=== PATIENT | male | born 1955 | race Caucasian/White ===

== ENCOUNTER → 2017-07-28 07:47 | Outpatient (CLI) | payer OTHER, SELFPAY ==
[2017-07-28 08:23] LABS: Hematocrit 43.3 % (40-54); Hemoglobin 14.8 g/dl (13.0-16.5); Mean Corp Hgb Conc 34.2 g/gl (32-36); Mean Corpuscular Volume 84.7 fL (80-94); Mean Platelet Vol. 10.2 fl (6.2-12.0); Platelet Count 234 K/mm3 (150-450); Red Blood Count 5.11 M/mm3 (4.6-6.2); Scan Indicated on CBC? Y/N NO; White Blood Count 6.8 K/mm3 (4.4-11.0)
[2017-07-28 08:44] LABS: ALB/GLOB Ratio 1.1 RATIO (0.9-2.4); AST(SGOT) 13 U/L (15-37); Alanine Aminotransfer ALT/SGPT 27 U/L (16-61); Albumin, Serum 3.8 g/dL (3.2-5.0); Alkaline Phosphatase 62 U/L (45-117); Anion Gap 9 (5-15); BUN 12 mg/dL (7-18); BUN/Creat Ratio 12.3 RATIO (10-20); Calcium,Total 8.8 mg/dL (8.5-10.1); Chloride 104 mmol/L (98-107); Cholesterol 129 mg/dL (200); Creatinine, Serum 0.98 mg/dL (0.70-1.30); EST Glomerular Filtration Rate 83 mL/min (>60); Est Glom Filt Rate - Afr Amer 101 mL/min (>60); Globulin 3.6 g/dL (2.2-4.2); Glucose 237 mg/dL (74-106); High Density Lipoprotein 46 mg/dL; Potassium 4.2 mmol/L (3.5-5.1); Protein, Total 7.4 g/dL (6.4-8.2); Sodium Level 138 mmol/L (136-145); Triglycerides 71 mg/dL; Very Low Density Lipoprotein 14 mg/dL (5-40)
[2017-07-28 08:56] LABS: Microalbumin,Random Urine 9.5 mg/L (NO RANGE EST.); Microalbumin:Creatinine Ratio 40.3 mg/g CRE (<30 mg/g CRE)
== END ==
PROVIDERS: Family Provider Family Medicine; PCP Family Medicine; Visit Provider Family Medicine
DX: I10 Essential (primary) hypertension (principal); E78.5 Hyperlipidemia, unspecified; E11.9 Type 2 diabetes mellitus without complications
CPT/HCPCS: 36415; 80053; 80061; 82043; 82570; 83036; 85027

== ENCOUNTER → 2017-11-24 09:08 | Outpatient (CLI) | payer OTHER, SELFPAY ==
[2017-11-24 09:17] LABS: Bacteria 0 SEEN /hpf (None Seen); Mucous, Urine 0 SEEN /hpf (<or=2+); Red Blood Cells-Urine 0 SEEN /hpf (0-5); Squamous Epithelial Cells - UA 0 SEEN /hpf (0-5)
[2017-11-24 09:37] LABS: Hemoglobin 14.7 g/dl (13.0-16.5); Mean Corp Hgb Conc 33.4 g/gl (32-36); Mean Corpuscular Hgb 28.9 pg (27.0-32.0); Mean Corpuscular Volume 86.6 fL (80-94); Mean Platelet Vol. 9.9 fl (6.2-12.0); Platelet Count 195 K/mm3 (150-450); RBC Distribution Width CV 13.1 % (11.6-14.6); RBC Distribution Width SD 41.7 fl (35.1-43.9); Red Blood Count 5.08 M/mm3 (4.6-6.2); White Blood Count 8.2 K/mm3 (4.4-11.0)
[2017-11-24 09:39] LABS: Color, Urine Yellow (Yellow); Glucose, Dipstick Normal (Normal); Ketone-Dipstick Negative (Negative); Leukocyte Esterase-Dipstick 25 /ul (Negative); Nitrite-Dipstick Negative (Negative); Occult Blood-Urine Negative /ul (Negative); Protein-Dipstick Negative (Negative); Urine Bilirubin Dipstick Negative (Negative); Urine Clarity Clear (Clear); Urine Urobilinogen Normal (Normal); Urine pH 6.5 (5.0 - 8.0)
[2017-11-24 09:42] LABS: Scan Indicated on CBC? Y/N NO
[2017-11-24 09:49] LABS: White Blood Cells 0-5 SEEN /hpf (0-5)
[2017-11-24 10:00] LABS: Hemoglobin A1c 8.3 % (4.2-6.3)
[2017-11-24 10:02] LABS: ALB/GLOB Ratio 1.2 RATIO (0.9-2.4); AST(SGOT) 18 U/L (15-37); Alanine Aminotransfer ALT/SGPT 26 U/L (16-61); Albumin, Serum 3.9 g/dL (3.2-5.0); Alkaline Phosphatase 62 U/L (45-117); Anion Gap 5 (5-15); BUN 11 mg/dL (7-18); BUN/Creat Ratio 11.6 RATIO (10-20); Calcium,Total 8.7 mg/dL (8.5-10.1); Chloride 104 mmol/L (98-107); Cholesterol 120 mg/dL (200); Creatinine, Serum 0.95 mg/dL (0.70-1.30); EST Glomerular Filtration Rate 86 mL/min (>60); Est Glom Filt Rate - Afr Amer 104 mL/min (>60); Globulin 3.2 g/dL (2.2-4.2); Glucose 181 mg/dL (74-106); High Density Lipoprotein 40 mg/dL; PSA,Total - Annual Screen 1.94 ng/mL (0.00-4.00); Potassium 4.2 mmol/L (3.5-5.1); Protein, Total 7.1 g/dL (6.4-8.2); Sodium Level 137 mmol/L (136-145); Triglycerides 95 mg/dL; Very Low Density Lipoprotein 19 mg/dL (5-40)
== END ==
PROVIDERS: Family Provider Family Medicine; PCP Family Medicine; Visit Provider Family Medicine
DX: I10 Essential (primary) hypertension (principal); R80.9 Proteinuria, unspecified; E78.5 Hyperlipidemia, unspecified; E11.9 Type 2 diabetes mellitus without complications; Z12.5 Encounter for screening for malignant neoplasm of prostate
CPT/HCPCS: 36415; 80053; 80061; 81001; 83036; 84153; 85027; G0103

== ENCOUNTER → 2018-03-16 07:34 | Outpatient (CLI) | payer OTHER, SELFPAY ==
[2018-03-16 07:41] LABS: Bacteria 0 SEEN /hpf (None Seen); Mucous, Urine 0 SEEN /hpf (<or=2+); Red Blood Cells-Urine 0 SEEN /hpf (0-5); Squamous Epithelial Cells - UA 0 SEEN /hpf (0-5); White Blood Cells 0 SEEN /hpf (0-5)
[2018-03-16 09:04] LABS: Absolute Lymphocyte Count 1.77 X10^3/ul (0.83-4.51); Absolute Neutrophil Count 6.1 X10^3/uL (2.0-7.7); Basophil# 0.03 X10^3/uL; Basophil% 0.3 % (0-1); Eosinophil# 0.13 X10^3/uL; Eosinophils% 1.5 % (0-5); Hematocrit 45.9 % (40-54); Hemoglobin 15.3 g/dl (13.0-16.5); Lymphocyte # 1.77 X10^3/ul (4.0); Lymphocyte % 20.3 % (19-41); Mean Corp Hgb Conc 33.3 g/gl (32-36); Mean Corpuscular Hgb 29.2 pg (27.0-32.0); Mean Corpuscular Volume 87.6 fL (80-94); Mean Platelet Vol. 10.1 fl (6.2-12.0); Monocyte# 0.63 X10^3/uL; Monocyte% 7.2 % (0-10); Neutrophil # 6.14 X10^3/uL (2.7-7.7); Neutrophil % 70.5 % (47-70); POSITIVE COUNT NO; POSITIVE DIFFERENTIAL NO; POSITIVE MORPHOLOGY NO; Platelet Count 227 K/mm3 (150-450); RBC Distribution Width CV 13.3 % (11.6-14.6); RBC Distribution Width SD 42.5 fl (35.1-43.9); Red Blood Count 5.24 M/mm3 (4.6-6.2); White Blood Count 8.7 K/mm3 (4.4-11.0)
[2018-03-16 09:23] LABS: Hemoglobin A1c 9.3 % (4.2-6.3)
[2018-03-16 09:25] LABS: Color, Urine Yellow (Yellow); Glucose, Dipstick 1000 mg/dl (Normal); Ketone-Dipstick 5 mg/dl (Negative); Leukocyte Esterase-Dipstick Negative /ul (Negative); Nitrite-Dipstick Negative (Negative); Occult Blood-Urine Negative /ul (Negative); Protein-Dipstick Negative (Negative); Specific Gravity, Urine 1.015 (1.002-1.030); Urine Bilirubin Dipstick Negative (Negative); Urine Clarity Clear (Clear); Urine Urobilinogen Normal (Normal)
[2018-03-16 09:34] LABS: Microalbumin,Random Urine 27.5 mg/L (NO RANGE EST.); Microalbumin:Creatinine Ratio 35.3 mg/g CRE (<30 mg/g CRE)
[2018-03-16 09:37] LABS: ALB/GLOB Ratio 1.1 RATIO (0.9-2.4); AST(SGOT) 12 U/L (15-37); Alanine Aminotransfer ALT/SGPT 27 U/L (16-61); Alkaline Phosphatase 72 U/L (45-117); Anion Gap 6 (5-15); BUN 16 mg/dL (7-18); BUN/Creat Ratio 17.7 RATIO (10-20); Chloride 102 mmol/L (98-107); Creatinine, Serum 0.91 mg/dL (0.70-1.30); EST Glomerular Filtration Rate 90 mL/min (>60); Est Glom Filt Rate - Afr Amer 109 mL/min (>60); Globulin 3.8 g/dL (2.2-4.2); Glucose 251 mg/dL (74-106); Potassium 4.6 mmol/L (3.5-5.1); Protein, Total 7.8 g/dL (6.4-8.2); Sodium Level 136 mmol/L (136-145)
== END ==
PROVIDERS: Family Provider Family Medicine; PCP Family Medicine; Referring Provider Family Medicine; Visit Provider Family Medicine
DX: I10 Essential (primary) hypertension (principal); E11.9 Type 2 diabetes mellitus without complications
CPT/HCPCS: 36415; 80053; 81001; 82043; 82570; 83036; 85025

== ENCOUNTER → 2018-10-28 08:20 | Outpatient (CLI) | payer OTHER, SELFPAY ==
[2018-10-28 10:03] LABS: Absolute Lymphocyte Count 1.89 X10^3/ul (0.83-4.51); Absolute Neutrophil Count 5.7 X10^3/uL (2.0-7.7); Basophil# 0.02 X10^3/uL; Basophil% 0.2 % (0-1); Eosinophil# 0.18 X10^3/uL; Eosinophils% 2.2 % (0-5); Hematocrit 46.9 % (40-54); Hemoglobin 15.7 g/dl (13.0-16.5); Lymphocyte # 1.89 X10^3/ul (4.0); Lymphocyte % 22.6 % (19-41); Mean Corp Hgb Conc 33.5 g/gl (32-36); Mean Corpuscular Hgb 28.3 pg (27.0-32.0); Mean Corpuscular Volume 84.7 fL (80-94); Mean Platelet Vol. 10.6 fl (6.2-12.0); Monocyte# 0.54 X10^3/uL; Monocyte% 6.5 % (0-10); Neutrophil # 5.71 X10^3/uL (2.7-7.7); Neutrophil % 68.1 % (47-70); Platelet Count 252 K/mm3 (150-450); RBC Distribution Width CV 13.7 % (11.6-14.6); Red Blood Count 5.54 M/mm3 (4.6-6.2); White Blood Count 8.4 K/mm3 (4.4-11.0)
[2018-10-28 10:04] LABS: POSITIVE COUNT NO; POSITIVE DIFFERENTIAL NO; POSITIVE MORPHOLOGY NO
[2018-10-28 10:24] LABS: ALB/GLOB Ratio 1.1 RATIO (0.9-2.4); AST(SGOT) 16 U/L (15-37); Alanine Aminotransfer ALT/SGPT 27 U/L (16-61); Albumin, Serum 4.1 g/dL (3.2-5.0); Alkaline Phosphatase 76 U/L (45-117); Anion Gap 7 (5-15); BUN 12 mg/dL (7-18); BUN/Creat Ratio 11.9 RATIO (10-20); Calcium,Total 9.5 mg/dL (8.5-10.1); Chloride 104 mmol/L (98-107); Cholesterol 140 mg/dL (200); Creatinine, Serum 1.01 mg/dL (0.70-1.30); EST Glomerular Filtration Rate 80 mL/min (>60); Est Glom Filt Rate - Afr Amer 96 mL/min (>60); Globulin 3.6 g/dL (2.2-4.2); Glucose 201 mg/dL (74-106); High Density Lipoprotein 42 mg/dL; Potassium 4.4 mmol/L (3.5-5.1); Protein, Total 7.7 g/dL (6.4-8.2); Sodium Level 141 mmol/L (136-145); Triglycerides 149 mg/dL; Very Low Density Lipoprotein 30 mg/dL (5-40)
[2018-10-28 10:34] LABS: Microalbumin,Random Urine 18.6 mg/L (NO RANGE EST.); Microalbumin:Creatinine Ratio 22.4 mg/g CRE (<30 mg/g CRE)
== END ==
PROVIDERS: Family Provider Family Medicine; PCP Family Medicine; Visit Provider Family Medicine
DX: E11.9 Type 2 diabetes mellitus without complications (principal); I10 Essential (primary) hypertension; E78.5 Hyperlipidemia, unspecified
CPT/HCPCS: 36415; 80053; 80061; 82043; 82570; 83036; 85025

== ENCOUNTER → 2019-01-24 07:57 | Outpatient (CLI) | payer OTHER, SELFPAY ==
[2019-01-24 08:06] LABS: Bacteria 0 SEEN /hpf (None Seen); Mucous, Urine 0 SEEN /hpf (<or=2+)
[2019-01-24 10:16] LABS: Absolute Lymphocyte Count 1.64 X10^3/uL (0.83-4.51); Absolute Neutrophil Count 5.5 X10^3/uL (2.0-7.7); Basophil# 0.05 X10^3/uL; Basophil% 0.6 % (0-1); Eosinophil# 0.14 X10^3/uL; Eosinophils% 1.8 % (0-5); Hematocrit 43.8 % (40-54); Lymphocyte # 1.64 X10^3/ul (4.0); Lymphocyte % 20.8 % (19-41); Mean Corpuscular Hgb 28.2 pg (27.0-32.0); Mean Corpuscular Volume 88.1 fL (80-94); Mean Platelet Vol. 10.6 fl (6.2-12.0); Monocyte# 0.49 X10^3/uL; Monocyte% 6.2 % (0-10); NRBC Flagged by Analyzer 0 % (0-5); Neutrophil # 5.53 X10^3/uL (2.7-7.7); Neutrophil % 70.1 % (47-70); Platelet Count 220 K/mm3 (150-450); RBC Distribution Width CV 13.2 % (11.6-14.6); RBC Distribution Width SD 42.7 fl (35.1-43.9); Red Blood Count 4.97 M/mm3 (4.6-6.2); White Blood Count 7.9 K/mm3 (4.4-11.0)
[2019-01-24 10:37] LABS: Hemoglobin A1c 7.6 % (4.2-6.3)
[2019-01-24 10:50] LABS: ALB/GLOB Ratio 1.1 RATIO (0.9-2.4); AST(SGOT) 15 U/L (15-37); Alanine Aminotransfer ALT/SGPT 24 U/L (16-61); Albumin, Serum 3.9 g/dL (3.2-5.0); Alkaline Phosphatase 64 U/L (45-117); Anion Gap 6 (5-15); BUN 14 mg/dL (7-18); BUN/Creat Ratio 16.6 RATIO (10-20); Calcium,Total 9.1 mg/dL (8.5-10.1); Chloride 108 mmol/L (98-107); Creatinine, Serum 0.84 mg/dL (0.70-1.30); EST Glomerular Filtration Rate 98 mL/min (>60); Est Glom Filt Rate - Afr Amer 118 mL/min (>60); Globulin 3.5 g/dL (2.2-4.2); Glucose 126 mg/dL (74-106); Protein, Total 7.4 g/dL (6.4-8.2); Sodium Level 139 mmol/L (136-145)
[2019-01-24 11:08] LABS: Microalbumin,Random Urine 26.2 mg/L (NO RANGE EST.); Microalbumin:Creatinine Ratio 57.2 mg/g CRE (<30 mg/g CRE)
[2019-01-24 11:12] LABS: Color, Urine Yellow (Yellow); Glucose, Dipstick Normal (Normal); Ketone-Dipstick Negative (Negative); Leukocyte Esterase-Dipstick Negative /ul (Negative); Nitrite-Dipstick Negative (Negative); Occult Blood-Urine Negative /ul (Negative); Protein-Dipstick Negative (Negative); Urine Bilirubin Dipstick Negative (Negative); Urine Clarity Clear (Clear); Urine Urobilinogen Normal (Normal)
[2019-01-24 11:28] LABS: Squamous Epithelial Cells - UA 0-5 SEEN /hpf (0-5)
[2019-01-24 11:30] LABS: Red Blood Cells-Urine 0-5 SEEN /hpf (0-5); White Blood Cells 0-5 SEEN /hpf (0-5)
== END ==
PROVIDERS: Family Provider Family Medicine; PCP Family Medicine; Referring Provider Family Medicine; Visit Provider Family Medicine
DX: I10 Essential (primary) hypertension (principal); E11.9 Type 2 diabetes mellitus without complications
CPT/HCPCS: 36415; 80053; 81001; 82043; 82570; 83036; 85025

== ENCOUNTER → 2019-05-10 07:14 | Outpatient (CLI) | payer OTHER, SELFPAY ==
[2019-05-10 08:10] LABS: Absolute Lymphocyte Count 1.91 X10^3/uL (0.83-4.51); Absolute Neutrophil Count 7.6 X10^3/uL (2.0-7.7); Basophil# 0.05 X10^3/uL; Basophil% 0.5 % (0-1); Eosinophil# 0.16 X10^3/uL; Eosinophils% 1.5 % (0-5); Hematocrit 44.8 % (40-54); Hemoglobin 14.6 g/dL (13.0-16.5); Lymphocyte # 1.91 X10^3/ul (4.0); Lymphocyte % 18.5 % (19-41); Mean Corp Hgb Conc 32.6 g/dL (32-36); Mean Corpuscular Hgb 28.6 pg (27.0-32.0); Mean Corpuscular Volume 87.7 fL (80-94); Mean Platelet Vol. 9.7 fl (6.2-12.0); Monocyte% 5.8 % (0-10); NRBC Flagged by Analyzer 0 % (0-5); Neutrophil # 7.57 X10^3/uL (2.7-7.7); Neutrophil % 73.2 % (47-70); Platelet Count 272 K/mm3 (150-450); RBC Distribution Width SD 41.9 fl (35.1-43.9); Red Blood Count 5.11 M/mm3 (4.6-6.2); White Blood Count 10.3 K/mm3 (4.4-11.0)
[2019-05-10 08:31] LABS: ALB/GLOB Ratio 1.1 RATIO (0.9-2.4); AST(SGOT) 16 U/L (15-37); Alanine Aminotransfer ALT/SGPT 29 U/L (16-61); Albumin, Serum 3.8 g/dL (3.2-5.0); Alkaline Phosphatase 64 U/L (45-117); Anion Gap 3 (5-15); BUN 17 mg/dL (7-18); BUN/Creat Ratio 17.5 RATIO (10-20); Calcium,Total 9.2 mg/dL (8.5-10.1); Chloride 106 mmol/L (98-107); Cholesterol 118 mg/dL (200); Creatinine, Serum 0.97 mg/dL (0.70-1.30); EST Glomerular Filtration Rate 83 mL/min (>60); Est Glom Filt Rate - Afr Amer 100 mL/min (>60); Globulin 3.6 g/dL (2.2-4.2); Glucose 149 mg/dL (74-106); High Density Lipoprotein 43 mg/dL; Potassium 4.7 mmol/L (3.5-5.1); Protein, Total 7.4 g/dL (6.4-8.2); Sodium Level 139 mmol/L (136-145); Triglycerides 78 mg/dL; Very Low Density Lipoprotein 16 mg/dL (5-40)
[2019-05-10 08:42] LABS: Microalbumin,Random Urine 9.9 mg/L (NO RANGE EST.); Microalbumin:Creatinine Ratio 22.1 mg/g CRE (<30 mg/g CRE)
[2019-05-10 08:43] LABS: Bacteria 0 SEEN /hpf (None Seen); Mucous, Urine 0 SEEN /hpf (<or=2+); Red Blood Cells-Urine 0 SEEN /hpf (0-5); White Blood Cells 0 SEEN /hpf (0-5)
[2019-05-10 09:05] LABS: Color, Urine Yellow (Yellow); Glucose, Dipstick Normal (Normal); Ketone-Dipstick Negative (Negative); Leukocyte Esterase-Dipstick Negative /ul (Negative); Nitrite-Dipstick Negative (Negative); Occult Blood-Urine Negative /ul (Negative); Protein-Dipstick Negative (Negative); Urine Bilirubin Dipstick Negative (Negative); Urine Clarity Clear (Clear); Urine Urobilinogen Normal (Normal)
[2019-05-10 09:21] LABS: Squamous Epithelial Cells - UA 0-5 SEEN /hpf (0-5)
[2019-05-10 09:57] LABS: Hemoglobin A1c 8.1 % (4.2-6.3)
== END ==
PROVIDERS: Family Provider Family Medicine; PCP Family Medicine; Referring Provider Family Medicine; Visit Provider Family Medicine
DX: I10 Essential (primary) hypertension (principal); E78.5 Hyperlipidemia, unspecified; R80.9 Proteinuria, unspecified; Z72.0 Tobacco use; E11.9 Type 2 diabetes mellitus without complications
CPT/HCPCS: 36415; 80053; 80061; 81001; 82043; 82570; 83036; 85025

== ENCOUNTER → 2019-10-02 08:36 | Outpatient (CLI) | payer OTHER, SELFPAY ==
[2019-10-02 10:08] LABS: Hemoglobin A1c 7.5 % (3.8-5.6)
[2019-10-02 10:40] LABS: ALB/GLOB Ratio 1.2 RATIO (0.9-2.4); AST(SGOT) 20 U/L (15-37); Alanine Aminotransfer ALT/SGPT 31 U/L (16-61); Alkaline Phosphatase 65 U/L (45-117); Anion Gap 6 (5-15); BUN 16 mg/dL (7-18); BUN/Creat Ratio 18.2 RATIO (10-20); Chloride 104 mmol/L (98-107); Creatinine, Serum 0.88 mg/dL (0.70-1.30); EST Glomerular Filtration Rate 93 mL/min (>60); Est Glom Filt Rate - Afr Amer 113 mL/min (>60); Globulin 3.4 g/dL (2.2-4.2); Glucose 141 mg/dL (74-106); Potassium 3.9 mmol/L (3.5-5.1); Protein, Total 7.4 g/dL (6.4-8.2); Sodium Level 137 mmol/L (136-145)
== END ==
PROVIDERS: PCP Family Medicine; Referring Provider Family Medicine; Visit Provider Family Medicine
DX: I10 Essential (primary) hypertension (principal); E11.9 Type 2 diabetes mellitus without complications
CPT/HCPCS: 36415; 80053; 83036

== ENCOUNTER → 2020-02-06 07:54 | Outpatient (CLI) | payer OTHER, SELFPAY ==
[2020-02-06 07:59] LABS: Bacteria 0 SEEN /hpf (None Seen); Mucous, Urine 0 SEEN /hpf (<or=2+); Red Blood Cells-Urine 0 SEEN /hpf (0-5); Squamous Epithelial Cells - UA 0 SEEN /hpf (0-5); White Blood Cells 0 SEEN /hpf (0-5)
[2020-02-06 10:19] LABS: Absolute Lymphocyte Count 1.78 X10^3/uL (0.83-4.51); Absolute Neutrophil Count 6.3 X10^3/uL (2.0-7.7); Basophil# 0.07 X10^3/uL; Basophil% 0.8 % (0-1); Eosinophil# 0.21 X10^3/uL; Eosinophils% 2.3 % (0-5); Hematocrit 44.7 % (40-54); Hemoglobin 14.4 g/dL (13.0-16.5); Lymphocyte # 1.78 X10^3/ul (4.0); Lymphocyte % 19.8 % (19-41); Mean Corp Hgb Conc 32.2 g/dL (32-36); Mean Corpuscular Volume 89.9 fL (80-94); Mean Platelet Vol. 10.4 fl (6.2-12.0); Monocyte# 0.55 X10^3/uL; Monocyte% 6.1 % (0-10); NRBC Flagged by Analyzer 0 % (0-5); Neutrophil # 6.33 X10^3/uL (2.7-7.7); Neutrophil % 70.4 % (47-70); Platelet Count 254 K/mm3 (150-450); RBC Distribution Width CV 13.1 % (11.6-14.6); RBC Distribution Width SD 42.8 fl (35.1-43.9); Red Blood Count 4.97 M/mm3 (4.6-6.2)
[2020-02-06 10:21] LABS: Color, Urine Yellow (Yellow); Glucose, Dipstick Normal (Normal); Ketone-Dipstick Negative (Negative); Leukocyte Esterase-Dipstick Negative /ul (Negative); Nitrite-Dipstick Negative (Negative); Occult Blood-Urine Negative /ul (Negative); Protein-Dipstick Negative (Negative); Urine Bilirubin Dipstick Negative (Negative); Urine Clarity Clear (Clear); Urine Urobilinogen Normal (Normal)
[2020-02-06 10:29] LABS: ALB/GLOB Ratio 1.2 RATIO (0.9-2.4); AST(SGOT) 15 U/L (15-37); Alanine Aminotransfer ALT/SGPT 29 U/L (16-61); Albumin, Serum 4.1 g/dL (3.2-5.0); Alkaline Phosphatase 59 U/L (45-117); Anion Gap 6 (5-15); BUN 14 mg/dL (7-18); BUN/Creat Ratio 14.6 RATIO (10-20); Calcium,Total 9.1 mg/dL (8.5-10.1); Chloride 104 mmol/L (98-107); Cholesterol 130 mg/dL (200); Creatinine, Serum 0.96 mg/dL (0.70-1.30); EST Glomerular Filtration Rate 85 mL/min (>60); Est Glom Filt Rate - Afr Amer 102 mL/min (>60); Globulin 3.4 g/dL (2.2-4.2); Glucose 145 mg/dL (74-106); High Density Lipoprotein 52 mg/dL; Protein, Total 7.5 g/dL (6.4-8.2); Sodium Level 139 mmol/L (136-145); Triglycerides 110 mg/dL; Very Low Density Lipoprotein 22 mg/dL (5-40)
[2020-02-06 10:40] LABS: Hemoglobin A1c 6.8 % (3.8-5.6)
[2020-02-06 11:02] LABS: Microalbumin,Random Urine 7.7 mg/L (NO RANGE EST.); Microalbumin:Creatinine Ratio 31.6 mg/g CRE (<30 mg/g CRE)
== END ==
PROVIDERS: PCP Family Medicine; Referring Provider Family Medicine; Visit Provider Family Medicine
DX: E11.9 Type 2 diabetes mellitus without complications (principal); I10 Essential (primary) hypertension; E78.5 Hyperlipidemia, unspecified; R80.9 Proteinuria, unspecified
CPT/HCPCS: 36415; 80053; 80061; 81001; 82043; 82570; 83036; 85025

== ENCOUNTER 2020-07-13 16:32 | Outpatient (RCR) | payer OTHER, SELFPAY ==
[2020-07-13] MEDS: COVID-19 VACC, MRNA(PFIZER)/PF 30 MCG/0.3 ML SYRINGE IM (09:21)
[2020-08-03] MEDS: COVID-19 VACC, MRNA(PFIZER)/PF 30 MCG/0.3 ML SYRINGE IM (09:01)
== END 2020-10-12 23:59 ==
LOC: IMMUN 16:32
PROVIDERS: PCP Family Medicine; Referring Provider Family Medicine; Visit Provider Family Medicine
DX: Z23 Encounter for immunization (principal)
CPT/HCPCS: 0001A; 0002A; 91300

== ENCOUNTER → 2020-08-05 08:32 | Outpatient (CLI) | payer OTHER, SELFPAY ==
[2020-08-05 10:24] LABS: Absolute Lymphocyte Count 1.63 X10^3/uL (0.83-4.51); Absolute Neutrophil Count 4.4 X10^3/uL (2.0-7.7); Basophil# 0.06 X10^3/uL; Basophil% 0.9 % (0-1); Eosinophil# 0.17 X10^3/uL; Eosinophils% 2.5 % (0-5); Hematocrit 38.7 % (40-54); Hemoglobin 12.5 g/dL (13.0-16.5); Lymphocyte # 1.63 X10^3/ul (4.0); Lymphocyte % 23.9 % (19-41); Mean Corp Hgb Conc 32.3 g/dL (32-36); Mean Corpuscular Volume 89.8 fL (80-94); Mean Platelet Vol. 10.3 fl (6.2-12.0); Monocyte# 0.52 X10^3/uL; Monocyte% 7.6 % (0-10); NRBC Flagged by Analyzer 0 % (0-5); Neutrophil # 4.42 X10^3/uL (2.7-7.7); Neutrophil % 64.7 % (47-70); Platelet Count 235 K/mm3 (150-450); RBC Distribution Width CV 12.6 % (11.6-14.6); RBC Distribution Width SD 41.8 fl (35.1-43.9); Red Blood Count 4.31 M/mm3 (4.6-6.2); White Blood Count 6.8 K/mm3 (4.4-11.0)
[2020-08-05 10:52] LABS: Hemoglobin A1c 7.9 % (3.8-5.6)
[2020-08-05 10:58] LABS: ALB/GLOB Ratio 1.2 RATIO (0.9-2.4); AST(SGOT) 20 U/L (15-37); Alanine Aminotransfer ALT/SGPT 44 U/L (16-61); Albumin, Serum 3.9 g/dL (3.2-5.0); Alkaline Phosphatase 56 U/L (45-117); Anion Gap 9 (5-15); BUN 24 mg/dL (7-18); Calcium,Total 9.1 mg/dL (8.5-10.1); Chloride 106 mmol/L (98-107); Cholesterol 130 mg/dL (200); EST Glomerular Filtration Rate 65 mL/min (>60); Est Glom Filt Rate - Afr Amer 79 mL/min (>60); Globulin 3.2 g/dL (2.2-4.2); Glucose 187 mg/dL (74-106); High Density Lipoprotein 41 mg/dL; Potassium 4.3 mmol/L (3.5-5.1); Protein, Total 7.1 g/dL (6.4-8.2); Sodium Level 140 mmol/L (136-145); Thyroid Stim Hormone (TSH) 1.35 uIU/mL (0.358-3.74); Triglycerides 183 mg/dL; Very Low Density Lipoprotein 37 mg/dL (5-40)
[2020-08-05 13:12] LABS: Microalbumin,Random Urine 15.6 mg/L (NO RANGE EST.); Microalbumin:Creatinine Ratio 17.7 mg/g CRE (<30 mg/g CRE)
== END ==
PROVIDERS: PCP Family Medicine; Referring Provider Family Medicine; Visit Provider Family Medicine
DX: E11.59 Type 2 diabetes mellitus with other circulatory complications (principal); E11.69 Type 2 diabetes mellitus with other specified complication
CPT/HCPCS: 36415; 80053; 80061; 82043; 82570; 83036; 84443; 85025

== ENCOUNTER → 2020-08-10 14:47 | Outpatient (CLI) | payer OTHER, SELFPAY ==
[2020-08-10 18:29] LABS: Vitamin B12 345 pg/mL (211-911)
[2020-08-10 18:39] LABS: Ferritin 174 ng/mL (26-388); Iron 74 ug/dL (65-175); Iron Binding Capacity,Total 298 ug/dL (250-450)
== END ==
PROVIDERS: PCP Family Medicine; Visit Provider Family Medicine
DX: D64.9 Anemia, unspecified (principal)
CPT/HCPCS: 36415; 82607; 82728; 82746; 83540; 83550

== ENCOUNTER → 2020-11-29 11:51 | Outpatient (CLI) | payer OTHER, SELFPAY ==
[2020-11-24 12:54] VITALS: BMI 33.3
--- NOTE | 2020-11-29 11:53 | EKG12_ITS ---
Test Reason : SOB Blood Pressure : / mmHG Vent. Rate : 094 BPM Atrial Rate : 094 BPM P-R Int : 144 ms QRS Dur : 122 ms QT Int : 376 ms P-R-T Axes : 066 250 020 degrees QTc Int : 470 ms Normal sinus rhythm Right bundle branch block Inferior infarct , age undetermined Abnormal ECG Confirmed by NIKHIL MARIE, RIGOBERTO ([id number]), newspaper photo editor YESY WIGGINS ([id number]) on 11/30/2020 10:33:14 AM Referred By: Aditi Hampton Confirmed By:RIGOBERTO TEJEDA MD
== END ==
PROVIDERS: PCP Internal Medicine; Referring Provider Internal Medicine; Visit Provider Internal Medicine
DX: I10 Essential (primary) hypertension (principal)
CPT/HCPCS: 93005

== ENCOUNTER → 2020-12-21 06:24 | Outpatient (CLI) | payer OTHER, SELFPAY ==
[2020-12-06 15:01] VITALS: BMI 33.5
--- NOTE | 2020-12-21 06:26 | ECHOD_ITS ---
Reason For Study: SOB Procedure This was a 2D Doppler, Color Flow transthoracic echocardiogram. The exam was of adequate technical quality. Exam performed in department. Left Ventricle Normal LV size. Left ventricular systolic function is normal. The estimated ejection fraction is 65 %. Diastolic function is indeterminate. No regional wall motion abnormalities noted. Right Ventricle Normal RV size. Normal systolic function. Atria Normal left atrium. Normal right atrium. No doppler evidence for ASD. Mitral Valve There is mild to moderate mitral annular calcification. Mild focal mitral valve calcification of the posterior leaflet. Trivial mitral valve insufficiency. Tricuspid Valve Normal tricuspid valve. Trivial tricuspid valve insufficiency. Unable to estimate RV systolic pressure due to insufficient tricuspid regurgitant envelope. Aortic Valve Trisinus/trileaflet aortic valve. Normal aortic valve. Pulmonic Valve The pulmonic valve is not well visualized. Great Vessels Normal sized aortic root. Pericardium/Pleural No pericardial effusion. MMode/2D Measurements & Calculations LVIDd: 4.8 cm IVSd: 0.86 cm Ao root diam: 3.4 cm LVIDs: 3.0 cm LVPWd: 0.89 cm RVDd: 3.4 cm FS: 38.3 % LAV(MOD-bp): 41.3 ml LA A4 area: 15.5 cm2 LA dimension(2D): 4.0 cm LAV(MOD-bp) Indexed: 18.9 ml/m2 LAV(MOD-sp2): 38.8 ml LAV(MOD-sp4): 43.3 ml RA A4 area: 15.0 cm2 Doppler Measurements & Calculations MV E max juan alberto: 81.5 cm/sec Lat Peak E' Juan Alberto: 5.8 cm/sec Med Peak E' Juan Alberto: 6.8 cm/sec MV A max juan alberto: 94.4 cm/sec E/E' lat: 14.2 E/E' med: 12.0 MV E/A: 0.86 Ao V2 max: 145.6 cm/sec LV V1 max: 119.2 cm/sec PA V2 max: 108.6 cm/sec Ao max P.5 mmHg LV V1 max P.7 mmHg ECHO/Echo Complete Interpretation Summary Left ventricular systolic function is normal. The estimated ejection fraction is 65 %. There is mild to moderate mitral annular calcification. Mild focal mitral valve calcification of the posterior leaflet. Trivial mitral valve insufficiency. Trivial tricuspid valve insufficiency. Unable to estimate RV systolic pressure due to insufficient tricuspid regurgita nt envelope. Diastolic function is indeterminate. Ordering Physician: Ritesh Slater Referring Physician: Aditi Hampton M.D. Performed By: Pamela Godoy RDCS
--- NOTE | 2020-12-21 12:27 | STRESSREP_ITS ---
Stress Test Report Date: 12-21-2020 Procedure: Exercise tolerance test/imaging study Indications: Shortness of breath/dyspnea on exertion; abnormal ECG/right bundle branch block Consent: Per the patient Procedure: The patient exercised on a Jose D protocol for 5 minutes and 30 seconds completing Stage I and 1 minute and 30 seconds of Stage II achieving a peak heart rate of 151 bpm (96% predicted maximal heart rate) with a peak blood pressure 242/72 mmHg and a peak MET capacity of 7 METs. The baseline ECG demonstrated sinus rhythm; right bundle branch block. The peak exercise ECG demonstrated no obvious ECG changes. There was an isolated PAC during exercise. The functional capacity was considered average. There was no complaint of chest discomfort during exercise or recovery. The examination was discontinued secondary to dyspnea and hypertensive response. Impression: 1. Technically adequate (percent predicted maximal heart rate greater than 85%) exercise tolerance test 2. Peak exercise ECG with continued right bundle branch block with no obvious ECG changes 3. There was an isolated PAC during recovery 4. Blood pressure response: Resting hypertension-exaggerated response 5. Nuclear images pending Myocardial perfusion imaging study: Technique: The patient was injected with 14.5 mCi of technetium 99m Cardiolite and subsequently rest SPECT Cardiolite nuclear imaging was obtained in the horizontal long, vertical long, and short axis views. The patient exercised on a Jose D protocol for 5 minutes and 30 seconds completing Stage I and 1 minute and 30 seconds of Stage II achieving a peak heart rate of 151 bpm (96% predicted maximal heart rate) with a peak blood pressure 242/72 mmHg and a peak MET capacity of 7 METs. The patient was injected with 44.3 mCi of technetium 99m Cardiolite and subsequently stress SPECT Cardiolite nuclear imaging was obtained in the horizontal long, vertical long, and short axis views. A gated Cardiolite study at peak stress was obtained. Interpretation: Rest and stress SPECT Cardiolite nuclear imaging status post realignment, normalization, and attenuation correction, demonstrates the appearance of a small area of subtle diminished tracer uptake near the apical segments without significant change between rest and stress. There is end systolic thickening and brightening. The gated Cardiolite study demonstrates myocardial thickening and inward wall motion. The reported LVEF is 67%. Impression: 1. Rest and stress SPECT Cardiolite nuclear imaging demonstrate the appearance of a small area of subtle diminished tracer uptake near the apical segments without significant change between rest and stress appearing compatible with the effects of physiologic apical thinning. 2. The gated Cardiolite study reports an LVEF of 67%. This note was generated with [employer] software. It may contain incorrect words, spelling, and punctuation that were not noted in checking the note before signing.
== END ==
PROVIDERS: PCP Internal Medicine; Referring Provider Internal Medicine Cardiovascular Disease; Visit Provider Internal Medicine Cardiovascular Disease
DX: R94.31 Abnormal electrocardiogram [ECG] [EKG] (principal); E78.5 Hyperlipidemia, unspecified; I10 Essential (primary) hypertension
CPT/HCPCS: 78452; 93017; 93306; A9500; A4216

== ENCOUNTER → 2021-11-08 | Outpatient (CLI) | payer MEDICAID, SELFPAY ==
[2021-11-08 12:26] LABS: Absolute Lymphocyte Count 1.57 X10^3/uL (0.83-4.51); Basophil# 0.05 X10^3/uL; Basophil% 0.8 % (0-1); Eosinophil# 0.16 X10^3/uL; Eosinophils% 2.6 % (0-5); Hematocrit 39.4 % (40-54); Hemoglobin 12.9 g/dL (13.0-16.5); Lymphocyte # 1.57 X10^3/ul (0.83-4.51); Lymphocyte % 25.3 % (19-41); Mean Corp Hgb Conc 32.7 g/dL (32-36); Mean Corpuscular Hgb 28.4 pg (27.0-32.0); Mean Corpuscular Volume 86.6 fL (80-94); Mean Platelet Vol. 10.9 fl (6.2-12.0); Monocyte# 0.39 X10^3/uL; Monocyte% 6.3 % (0-10); NRBC Flagged by Analyzer 0 % (0-5); Neutrophil # 4.01 X10^3/uL (2.7-7.7); Neutrophil % 64.7 % (47-70); Platelet Count 240 K/mm3 (150-450); RBC Distribution Width CV 13.6 % (11.6-14.6); RBC Distribution Width SD 42.4 fl (35.1-43.9); Red Blood Count 4.55 M/mm3 (4.6-6.2); White Blood Count 6.2 K/mm3 (4.4-11.0)
[2021-11-08 12:51] LABS: Vitamin D,25 Hydroxy 28.2 ng/mL
[2021-11-08 12:58] LABS: ALB/GLOB Ratio 1.1 RATIO (0.9-2.4); AST(SGOT) 23 U/L (15-37); Alanine Aminotransfer ALT/SGPT 38 U/L (16-61); Albumin, Serum 3.8 g/dL (3.2-5.0); Alkaline Phosphatase 59 U/L (45-117); Anion Gap 8 (5-15); BUN 20 mg/dL (7-18); BUN/Creat Ratio 14.8 RATIO (10-20); Calcium,Total 9.3 mg/dL (8.5-10.1); Chloride 104 mmol/L (98-107); Cholesterol 144 mg/dL (200); Creatinine, Serum 1.35 mg/dL (0.70-1.30); EST Glomerular Filtration Rate 56 mL/min (>60); Est Glom Filt Rate - Afr Amer 68 mL/min (>60); Globulin 3.6 g/dL (2.2-4.2); Glucose 285 mg/dL (74-106); High Density Lipoprotein 34 mg/dL; Potassium 4.6 mmol/L (3.5-5.1); Protein, Total 7.4 g/dL (6.4-8.2); Sodium Level 137 mmol/L (136-145); Thyroid Stim Hormone (TSH) 0.93 uIU/mL (0.358-3.74); Triglycerides 240 mg/dL; Very Low Density Lipoprotein 48 mg/dL (5-40)
[2021-11-08 13:14] LABS: Hemoglobin A1c 10.7 % (3.8-5.6)
== END | disposition home or self-care (01) ==
LOC: BIMLAB 10:03
PROVIDERS: PCP Internal Medicine; Visit Provider Internal Medicine
DX: I10 Essential (primary) hypertension (principal); E11.9 Type 2 diabetes mellitus without complications; E78.5 Hyperlipidemia, unspecified; E66.9 Obesity, unspecified
CPT/HCPCS: 36415; 80053; 80061; 82306; 83036; 84443; 85025

== ENCOUNTER → 2022-05-27 | Outpatient (CLI) | payer MEDICARE, BC, SELFPAY | END | disposition home or self-care (01) | PROVIDERS: PCP Internal Medicine; Referring Provider Otolaryngology; Visit Provider Otolaryngology | DX: H92.10 Otorrhea, unspecified ear (principal) | CPT/HCPCS: 87070; 87075; 87077; 87107; 87186; 87205 ==

== ENCOUNTER → 2022-06-30 | Outpatient (CLI) | payer MEDICARE, BC, SELFPAY ==
[2022-06-30 12:43] LABS: Absolute Lymphocyte Count 1.74 X10^3/uL (0.83-4.51); Absolute Neutrophil Count 4.9 X10^3/uL (2.0-7.7); Basophil# 0.08 X10^3/uL; Basophil% 1.1 % (0-1); Eosinophil# 0.15 X10^3/uL; Hematocrit 41.4 % (40-54); Hemoglobin 13.1 g/dL (13.0-16.5); Lymphocyte # 1.74 X10^3/ul (0.83-4.51); Lymphocyte % 23.1 % (19-41); Mean Corp Hgb Conc 31.6 g/dL (32-36); Mean Corpuscular Hgb 27.9 pg (27.0-32.0); Mean Corpuscular Volume 88.1 fL (80-94); Mean Platelet Vol. 10.4 fl (6.2-12.0); Monocyte# 0.62 X10^3/uL; Monocyte% 8.2 % (0-10); NRBC Flagged by Analyzer 0 % (0-5); Neutrophil # 4.89 X10^3/uL (2.7-7.7); Neutrophil % 65.1 % (47-70); Platelet Count 237 K/mm3 (150-450); RBC Distribution Width CV 13.5 % (11.6-14.6); RBC Distribution Width SD 43.8 fl (35.1-43.9); White Blood Count 7.5 K/mm3 (4.4-11.0)
[2022-06-30 12:56] LABS: Anion Gap 7 (5-15); BUN 23 mg/dL (7-18); BUN/Creat Ratio 18.3 RATIO (10-20); Calcium,Total 9.6 mg/dL (8.5-10.1); Chloride 106 mmol/L (98-107); Creatinine, Serum 1.26 mg/dL (0.70-1.30); EST Glomerular Filtration Rate 61 mL/min (>60); Est Glom Filt Rate - Afr Amer 74 mL/min (>60); Glucose 174 mg/dL (74-106); Potassium 4.8 mmol/L (3.5-5.1); Sodium Level 140 mmol/L (136-145)
== END | disposition home or self-care (01) ==
LOC: BIMLAB 09:38
PROVIDERS: PCP Internal Medicine; Referring Provider Internal Medicine; Visit Provider Internal Medicine
DX: E11.9 Type 2 diabetes mellitus without complications (principal); I10 Essential (primary) hypertension
CPT/HCPCS: 36415; 80048; 85025

== ENCOUNTER → 2022-07-03 | Outpatient (CLI) | payer MEDICARE, BC, SELFPAY ==
[2022-07-03 15:58] LABS: Microalbumin,Random Urine 26.4 mg/L (NO RANGE EST.); Microalbumin:Creatinine Ratio 24.2 mg/g CRE (<30 mg/g CRE)
== END | disposition home or self-care (01) ==
LOC: LABSPEC 12:24
PROVIDERS: PCP Internal Medicine; Visit Provider Internal Medicine
DX: E11.9 Type 2 diabetes mellitus without complications (principal)
CPT/HCPCS: 82043; 82570

== ENCOUNTER → 2023-01-01 | Outpatient (CLI) | payer MEDICARE, BC, SELFPAY ==
[2023-01-01 12:52] LABS: ALB/GLOB Ratio 1.1 RATIO (0.9-2.4); AST(SGOT) 31 U/L (15-37); Alanine Aminotransfer ALT/SGPT 37 U/L (16-61); Albumin, Serum 3.8 g/dL (3.2-5.0); Alkaline Phosphatase 62 U/L (45-117); Anion Gap 6 (5-15); BUN 20 mg/dL (7-18); BUN/Creat Ratio 15.5 RATIO (10-20); Calcium,Total 9.3 mg/dL (8.5-10.1); Chloride 104 mmol/L (98-107); Cholesterol 102 mg/dL (200); Creatinine, Serum 1.29 mg/dL (0.70-1.30); EST Glomerular Filtration Rate 59 mL/min (>60); Est Glom Filt Rate - Afr Amer 72 mL/min (>60); Globulin 3.6 g/dL (2.2-4.2); Glucose 100 mg/dL (74-106); High Density Lipoprotein 37 mg/dL; Protein, Total 7.4 g/dL (6.4-8.2); Sodium Level 136 mmol/L (136-145); Triglycerides 163 mg/dL; Very Low Density Lipoprotein 33 mg/dL (5-40)
[2023-01-01 12:53] LABS: Vitamin D,25 Hydroxy 28.5 ng/mL
== END | disposition home or self-care (01) ==
LOC: BIMLAB 08:27
PROVIDERS: PCP Internal Medicine; Referring Provider Internal Medicine; Visit Provider Internal Medicine
DX: E11.9 Type 2 diabetes mellitus without complications (principal); I10 Essential (primary) hypertension; E55.9 Vitamin D deficiency, unspecified
CPT/HCPCS: 36415; 80053; 80061; 82043; 82306; 82570; 83036

== ENCOUNTER → 2023-04-02 | Outpatient (CLI) | payer MEDICARE, BC, SELFPAY | END | disposition home or self-care (01) | LOC: LAB.FUTURE 08:41 → LABSPEC 08:42 | PROVIDERS: PCP Internal Medicine; Visit Provider Otolaryngology | DX: H92.12 Otorrhea, left ear (principal) ==

== ENCOUNTER → 2023-07-02 | Outpatient (CLI) | payer MEDICARE, BC, SELFPAY ==
--- OUTSIDE RECORDS SUMMARY | 2023-07-02 11:55 | XMS RPT_ITS | CCD ---
Author Name Unknown Address [facility] [address] [place] [id number] Organization [facility] Care Team Providers Care Controller Instructor Name Role Phone Crystal MARIE, Efewongbe Florina Primary Care [facility] ider OLEGHE, EFEWONGBE FLORINA Primary Care Unav ailable HARMON, RODOLFO MEREDITH Referring Unavailable HARMON, RODOLFO MEREDITH Attending Unavailable OLEGHE, EFEWONGBE FLORINA Primary Care Unav ailable SALO YOUNG Attending Unavailabl e HARMON, RODOLFO MEREDITH Admitting Unavailable HARMON, RODOLFO MEREDITH Referring Unavailable HARMON, RODOLFO MEREDITH Attending Unavailable HARMONRODOLFO Quezada Admitting Unavailable OLEGHE, EFEWONGBE FLORINA Primary Care Unav ailable OLEGHE, EFEWONGBE FLORINA Primary Care Unav ailable HARMON, RODOLFO MEREDITH Attending Unavailable OLEGHE, EFEWONGBE FLORINA Primary Care Unav ailable EMERSON COOLEY Attending Unavailable HARMON, RODOLFO MEREDITH Attending Unavailable OLEGHE, EFEWONGBE FLORINA Primary Care Unav ailable OLEGHE, EFEWONGBE FLORINA Primary Care Unav ailable HARMON, RODOLFO MEREDITH Attending Unavailable OLEGHE, EFEWONGBE FLORINA Primary Care Unav ailable HARMON, RODOLFO MEREDITH Attending Unavailable OLEGHE, EFEWONGBE FLORINA Primary Care Unav ailable HARMON, RODOLFO MEREDITH Attending Unavailable HARMONRODOLFO Attending Unavailable OLEGHE, EFEWONGBE FLORINA Primary Care Unav ailable HARMON, RODOLFO MEREDITH Attending Unavailable OLEGHE, EFEWONGBE FLORINA Primary Care Unav ailable OLEGHE, EFEWONGBE FLORINA Primary Care Unav ailable RODOLFO HARMON Attending Unavailable Medications Current Medications Medication Drug Class(es) Dates Sig (Normalized) Sig (Original) aspirin 81 mg chewable tablet (10 sources) Platelet Aggregation Inhibitor, Nonsteroidal Anti-inflammatory Drug Start: 01-04-2005 aspirin 81 mg chewable tablet Chew and Swallow 1 (one) tablet (81 mg total) every morning . 0 01/04/2005 Active atorvastatin 40 mg oral tablet (10 sources) HMG-CoA Reductase Inhibitor Start: 11-02-2022 take 1 tablet by mouth once daily in the evening atorvastatin (LIPITOR) 40 MG tablet Take 1 (one) tablet (40 mg total) by mouth daily in the evening . 0 11/02/2022 Active cefdinir 300 mg oral capsule (1 source) Cephalosporin Antibacterial Start: 05-23-2023 End: 05-30-2023 take 1 capsule by mouth twice daily cefdinir (OMNICEF) 300 MG capsule Take 1 (one) capsule (300 mg total) by mouth 2 (two) times a day for 7 days . 14 capsule 0 05/23/2023 05/30/2023 Active ciprofloxacin 3 mg/ml / dexamethasone 1 mg/ml otic suspension (15 sources) Corticosteroid, Quinolone Antimicrobial Start: 03-26-2023 ciprofloxacin-dexA METHasone (CIPRODEX) otic suspension Indications: Otorrhea of left ear Administer 4 (four) drops into both ears 2 (two) times a day . 7.5 mL 0 03/26/2023 Active Problems Active Problems Problem Classification Problem Date Documented Date Episodic/Chronic Diabetes mellitus without complication (5 sources) Diabetes mellitus; Translations: [Type 2 diabetes mellitus without complications] Onset: 05-16-2023 05-16-2023 Chronic Disorders of lipid metabolism (7 sources) Hyperlipidemia; Translations: [Hyperlipidemia, unspecified] Onset: 05-16-2023 05-16-2023 Chronic Essential hypertension (7 sources) Hypertensive disorder; Translations: [Essential (primary) hypertension] Onset: 05-16-2023 05-16-2023 Chronic Other ear and sense organ disorders (3 sources) Mixed conductive and sensorineural hearing loss, bilateral; Translations: [Mixed conductive and sensorineural hearing loss, bilateral] 06-25-2023 Chronic Other ear and sense organ disorders (1 source) Otorrhea of left ear; Translations: [Otorrhea, left ear] 03-26-2023 Episodic Other ear and sense organ disorders (11 sources) Cerebrospinal fluid otorrhea; Translations: [CSF otorrhea] Onset: 05-15-2023 04-18-2023 Episodic Other ear and sense organ disorders (2 sources) Otorrhea, left ear; Translations: [Otorrhea, left ear] Onset: 03-26-2023 Episodic Other upper respiratory disease (2 sources) Allergic rhinitis, unspecified; Translations: [Allergic rhinitis, unspecified] Onset: 12-26-2022 Chronic Otitis media and related conditions (10 sources) Chronic left mastoiditis; Translations: [Chronic mastoiditis, left ear] Onset: 11-28-2022 12-12-2022 Chronic Otitis media and related conditions (5 sources) Perforation of tympanic membrane; Translations: [Unspecified perforation of tympanic membrane, right ear] Onset: 12-26-2022 06-11-2023 Episodic Unclassified (3 sources) Cranial cerebrospinal fluid leak, spontaneous; Translations: [Cranial cerebrospinal fluid leak, spontaneous] Onset: 04-19-2023 Past or Other Problems Problem Classification Problem Date Documented Date Episodic/Chronic Unclassified (3 sources) Cranial cerebrospinal fluid leak, spontaneous; Translations: [Cranial cerebrospinal fluid leak, spontaneous] Onset: 04-19-2023 Results Test Name Value Interpretation Reference Range Facil ity Vital Signs Date Time Vital Sign Value Performing Clinician Faci lity 06-11-2023 08:57-0500 Body mass index (BMI) [Ratio] 31.43 kg/m2 Rodolfo Harmon MD Work Phone: [facility] 06-11-2023 08:57-0500 Body temperature 98.01 [degF] Rodolfo Harmon MD Work Phone: [facility] 06-11-2023 08:57-0500 Body weight 97.93 kg Rodolfo Harmon MD Work Phone: [facility] 05-28-2023 11:16-0500 Body height 176.5 cm Rodolfo Harmon MD Work Phone: [facility] 05-28-2023 11:16-0500 Body mass index (BMI) [Ratio] 40.35 kg/m2 Rodolfo Harmon MD Work Phone: [facility] 05-28-2023 11:16-0500 Body temperature 97.5 [degF] Rodolfo Harmon MD Work Phone: [facility] 05-28-2023 11:16-0500 Body weight 125.74 kg Rodolfo Harmon MD Work Phone: [facility] 05-15-2023 09:11-0500 Body height 176.5 cm Rodolfo Harmon MD Work Phone: [facility] 05-15-2023 09:11-0500 Body mass index (BMI) [Ratio] 31.78 kg/m2 Rodolfo Harmon MD Work Phone: [facility] 05-15-2023 09:11-0500 Body temperature 97.59 [degF] Rodolfo Harmon MD Work Phone: [facility] 05-15-2023 09:11-0500 Body weight 99.02 kg Rodolof Harmon MD Work Phone: [facility] 12-12-2022 14:41-0400 Body height 176.5 cm Rodolfo Harmon MD Work Phone: [facility] 12-12-2022 14:41-0400 Body mass index (BMI) [Ratio] 33.29 kg/m2 Rodolfo Harmon MD Work Phone: [facility] 12-12-2022 14:41-0400 Body temperature 99 [degF] Rodolfo Harmon MD Work Phone: [facility] 12-12-2022 14:41-0400 Body weight 103.74 kg Rodolfo Harmon MD Work Phone: [facility] Encounters Encounter Date Encounter Type Care Provider Facility Start: 06-22-2023 End: 06-22-2023 ambulatory EFEWONGBE FLORINA [facility]o Start: 06-22-2023 End: 06-22-2023 Clinical Support Emerson Randle Work Phone: [facility] Plan of Treatment Date Care Activity Detail Author Start: 04-23-2028 Tetanus vaccination Tetanus: Every 1 0yrs [facility] Start: 09-17-2023 End: 09-17-2023 Patient encounter procedure 09/17/2023 10:00 AM EDT Office Visit [facility] [address] [place] [address] Rodolfo Harmon MD [address] [place] [address] [facility] Start: 09-11-2023 End: 09-11-2023 Patient encounter procedure 09/11/2023 3:30 PM EDT Office Visit [facility] [address] [place] [address] Rodolfo Harmon MD [address] [place] [address] [facility] Start: 07-04-2023 End: 07-04-2023 Clinical Support 07/04/2023 1:00 PM EST Clinical Support [facility] [address] [place] [address] Emerson Cooley AuD [address] [facility] [address] [place] [address] [facility] Start: 06-26-2023 End: 06-26-2023 Patient encounter procedure 06/26/2023 10:45 AM EST Office Visit [facility] [address] [place] [address] [facility] [address] [facility] [address] [place] [address] [facility] Start: 06-11-2023 End: 06-11-2023 Patient encounter procedure 06/11/2023 9:00 AM EST Office Visit [facility] [address] [place] [address] Rodolfo Harmon MD [address] [place] [address] [facility] [place] Start: 05-23-2023 Subsequent hospital visit by physician 05/23/2023 Hospital Encounter [facility] [address] [place] [id number] Rodolfo Harmon MD [address] [facility] [address] [place] [address] [facility] Start: 04-19-2023 End: 04-18-2024 Creatinine 24H renal clearance panel Creatinine Clearance Lab Routine CSF otorrhea Expected: 04/19/2023, Expires: 04/18/2024 [facility] Payers Date Payer Category Payer Medicare MEDICARE MEDICAR E PART A & B [id number] 2022-Present [phone] S [id number] PART A CLAIMS [address] [address] [place] [address] [id number] 2022 Medicare [id number] 2022 Unknown [id number] 2022 Unknown [id number] 1955 Unknown [id number] 1955 Unknown [id number] 1957 Unknown [id number] 1957 Unknown [id number] 1957 Unknown [id number] 1957 Unknown [id number] 1957 Unknown [id number] 1957 Unknown [id number] 1957 Unknown [id number] [id number] 1957 Unknown [id number] 1957 Unknown [id number] 1955 Unknown [id number] [id number] Unknown [id number] Social History Date Type Detail Facility Start: 11-28-2022 Tobacco smoking status MNIS Never sm oked tobacco [facility] Start: 11-28-2022 End: 05-16-2023 Tobacco use and exposure Smokeless tobacco non-user [facility] Start: 12-12-2022 End: 05-15-2023 Alcohol intake Ex-drinker (finding) [facility] Start: 11-28-2022 End: 06-11-2023 History of Social function [facility] Start: 11-28-2022 End: 06-11-2023 Tobacco use panel [facility] Start: 1955 Sex Assigned At Not on file [facility] Start: 05-16-2023 Tobacco smoking status MNIS Ex-smoke r [facility] End: 05-07-2018 History of tobacco use Current smoker [facility] End: 05-07-2018 History of tobacco use Cigarette Smoker [facility] Start: 05-28-2023 End: 06-11-2023 Alcohol intake Current drinker of alcohol (finding) [facility] Start: 05-16-2023 Alcohol Comment occasional [facility] Medical Equipment Procedure Code Equipment Code Equipment Origin al Text Equipment Identifier Dates See Admin Instru ctions . [id number] Start: 10-05-2022 USE CHECK BLOOD GLUCOSE THREE TIMES DAILY [id number] Start: 10-05-2022 USE TO CHECK BLO OD GLUCOSE THREE TIMES DAILY [id number] Start: 10-05-2022 Kit 10ml Tisseel Frozen W/ Prima Syringe - [id number] Start: 05-23-2023 Hemostat 8 X 12. 5cm X 10mm Surgifoam Gelatin Sponge - [id number] Start: 05-23-2023 Clinical Notes 12-12-2022 to 06-22-2023 Emerson Cooley, AuD - 06/22/2023 1:45 PM Emerson Harding, AuD - 06/22/2023 1:45 PM Rodolfo Ziegler MD - 06/11/2023 9:23 AM Perla Roberts CMA - 06/11/2023 8:52 AM EST Note Date & Type Note Facility 06-22-2023 History of Presen t illness Narrative Formatting of this note is different fro m the original. Images from the original note were not included. [facility] [address] [address] Name: Kit Murray : 1955 Date: 06/22/23 History & Purpose of Evaluation: Kit Knutson was seen today for audiologic assessment with no physician referral. Mr Knutson was accompanied by his , Betty Knutson. Mr. Knutson's chief auditory complaint was bilateral hearing loss. The onset and progression were gradual, beginning at least nine years ago. He denied any sudden or rapid change of hearing. Mr. Knutson reported he is currently being treated by Rodolfo Harmon MD for a leak of cerebrospinal fluid into his left ear. He currently uses two zhcylhyebf-gf-wze-canal hearing aids, but they are no longer meeting his needs. He is interested in replacing only the right instrument at this time. He may pursue replacing the left device after the cerebrospinal fluid leak into his left ear is resolved. Please see below for other pertinent case history information as reported by Mr Knutson. Otologic Symptoms R L Noise Exposure Y N Medical Y N Hearing Loss [x] [x] Occupational-past, no hearing protection [x] [] Hypertension [x] [] Tinnitus [] [] Recreational [] [x] Diabetes [x] [] Otalgia [] [] [] [x] Hypercholesterolemia [x] [] Otorrhea-CSF, had surgery [] [x] Heart Disease [] [x] Aural Fullness [] [] Family History [] [x] Stroke [] [x] Meniere s Disease [] [] Cancer [] [x] Y N Sp./Lang. Skills Ear Surgery R L Vertigo [] [x] Appropriate [x] [] PE Tubes-extruded [] [x] Dizziness [] [x] In Therapy [] [x] Mastoidectomy [] [] Imbalance [] [x] Social Acoustic Neuroma [] [] Vestibular Rehab [] [x] Depression [] [x] Tympanoplasty [] [] Hearing aids: binaural CICs, not working properly, wants to replace right only Other: Results: Otoscopy: Clear canals, bilaterally. Puretone Air & Bone Conduction Audiometry: Right ear: moderate-severe hearing loss, primarily sensorineural, with a conductive component at 500 Hz and 4000 Hz. Left ear: moderate-severe hearing loss, primarily sensorineural, with a conductive component at 500 Hz, 3000 Hz, and 4000 Hz. Speech Audiometry: Speech recognition thresholds were in good agreement with puretone averages. Word recognition was good (88%) in the right ear and poor (66%) in the left ear when assessed at levels above normal conversational loudness level using recorded male voice. Immittance Audiometry: Tympanometry revealed normal ear canal volume with low static compliance (Jerger type As) in the left ear. Tympanometry in the right ear revealed high ear canal volume in the right ear. Impression: Middle ear testing was consistent with negative pressure in the left ear, and with a perforated tympanic membrane in the right ear, as previously noted by Dr. Harmon on 06-11-2023. Puretone audiometry was consistent with a moderate-severe mixed hearing loss, bilaterally. This hearing loss is expected to interfere with communication, especially in difficult listening situations. Mr. Knutson is a candidate for amplification with hearing aids and he was invited to schedule an appointment for a hearing aid consultation. I also recommended he contact his insurance carrier to verify whether or not he has benefits for hearing aids and, if so, if he is required to receive services through any particular contracted provider to receive the benefits. I also mentioned [facility]'s Hospital Care Assurance Program (HCAP) as an option if he qualifies. Recommendations: Follow up with Dr. Harmon. Further testing and/or re-evaluation at Dr. Harmon' discretion. Hearing aids are recommended. Re-evaluate in one year, or sooner if concerns arise, to monitor hearing. Use of hearing protection is recommended when in high levels of noise. The above was explained to Mr Knutson and he expressed understanding. Electronically Signed by: Jer Ruiz, [facility] 06/22/23 1:45 PM Audiogram: documented in this encounter [facility] 06-22-2023 History of Presen t illness Narrative Formatting of this note is different fro m the original. Images from the original note were not included. [facility] [address] [place] [address] Name: Kit Murray : 1955 Date: 06/22/23 History & Purpose of Evaluation: Kit Murray was seen today for audiologic assessment with no physician referral. Mr Murray was accompanied by his , Betty Murray. Mr. Murray's chief auditory complaint was bilateral hearing loss. The onset and progression were gradual, beginning at least nine years ago. He denied any sudden or rapid change of hearing. Mr. Murray reported he is currently being treated by Rodolfo Harmon MD for a leak of cerebrospinal fluid into his left ear. He currently uses two jkqorycrkz-vq-kro-canal hearing aids, but they are no longer meeting his needs. He is interested in replacing only the right instrument at this time. He may pursue replacing the left device after the cerebrospinal fluid leak into his left ear is resolved. Please see below for other pertinent case history information as reported by Mr Murray. Otologic Symptoms R L Noise Exposure Y N Medical Y N Hearing Loss [x] [x] Occupational-past, no hearing protection [x] [] Hypertension [x] [] Tinnitus [] [] Recreational [] [x] Diabetes [x] [] Otalgia [] [] [] [x] Hypercholesterolemia [x] [] Otorrhea-CSF, had surgery [] [x] Heart Disease [] [x] Aural Fullness [] [] Family History [] [x] Stroke [] [x] Meniere s Disease [] [] Cancer [] [x] Y N Sp./Ant. Skills Ear Surgery R L Vertigo [] [x] Appropriate [x] [] PE Tubes-extruded [] [x] Dizziness [] [x] In Therapy [] [x] Mastoidectomy [] [] Imbalance [] [x] Social Acoustic Neuroma [] [] Vestibular Rehab [] [x] Depression [] [x] Tympanoplasty [] [] Hearing aids: binaural CICs, not working properly, wants to replace right only Other: Results: Otoscopy: Clear canals, bilaterally. Puretone Air & Bone Conduction Audiometry: Right ear: moderate-severe hearing loss, primarily sensorineural, with a conductive component at 500 Hz and 4000 Hz. Left ear: moderate-severe hearing loss, primarily sensorineural, with a conductive component at 500 Hz, 3000 Hz, and 4000 Hz. Speech Audiometry: Speech recognition thresholds were in good agreement with puretone averages. Word recognition was good (88%) in the right ear and poor (66%) in the left ear when assessed at levels above normal conversational loudness level using recorded male voice. Immittance Audiometry: Tympanometry revealed normal ear canal volume with low static compliance (Jerger type As) in the left ear. Tympanometry in the right ear revealed high ear canal volume in the right ear. Impression: Middle ear testing was consistent with negative pressure in the left ear, and with a perforated tympanic membrane in the right ear, as previously noted by Dr. Harmon on 06-11-2023. Puretone audiometry was consistent with a moderate-severe mixed hearing loss, bilaterally. This hearing loss is expected to interfere with communication, especially in difficult listening situations. Mr. Murray is a candidate for amplification with hearing aids and he was invited to schedule an appointment for a hearing aid consultation. I also recommended he contact his insurance carrier to verify whether or not he has benefits for hearing aids and, if so, if he is required to receive services through any particular contracted provider to receive the benefits. I also mentioned [facility]'s Hospital Care Assurance Program (HCAP) as an option if he qualifies. Recommendations: Follow up with Dr. Harmon. Further testing and/or re-evaluation at Dr. Harmon' discretion. Hearing aids are recommended. Re-evaluate in one year, or sooner if concerns arise, to monitor hearing. Use of hearing protection is recommended when in high levels of noise. The above was explained to Mr Murray and he expressed understanding. Electronically Signed by: Jer Ruiz, [facility] 06/22/23 1:45 PM Audiogram: documented in this encounter [facility] 06-11-2023 History of Presen t illness Narrative Formatting of this note is different fro m the original. [facility] [address] [facility] [place] [address] [facility] [address] Dept: [phone] Rodolfo Harmon MD Kit Murray 68 y.o. male Patient presents with a chief complaint of Follow-up (2 week follow up) Temp 98 F (36.7 C) (Infrared) Wt 97.9 kg (215 lb 14.4 oz) BMI 31.43 kg/m History of Presenting Illness: The patient/caregiver reports a history of complaint with the following features: He reports that he has had a little discharge from the left ear. There is no pain. Hearing seems reduced from compared to the right ear. The drainage has been getting less each day. Review of systems covering 10 systems is reviewed and pertinent positives and negatives are noted as above. Past Medical History: Diagnosis Date Back pain Diabetes mellitus, type 2 (HCC) Glaucoma Hearing loss currently only using a hearing aid in his right ear Heart murmur History of kidney stones Hyperlipidemia Hypertension Obesity Otorrhea Right bundle branch block Current Outpatient Medications: aspirin 81 mg chewable tablet, Chew and Swallow 1 (one) tablet (81 mg total) every morning ., Disp: , Rfl: atorvastatin (LIPITOR) 40 MG tablet, Take 1 (one) tablet (40 mg total) by mouth daily in the evening ., Disp: , Rfl: BD Ultra-Fine Micro Pen Needle 32 gauge x 1/ Ndle, See Admin Instructions ., Disp: , Rfl: ciprofloxacin-dexAMETHasone (CIPRODEX) otic suspension, Administer 4 (four) drops into both ears 2 (two) times a day ., Disp: 7.5 mL, Rfl: 0 hydroCHLOROthiazide (HYDRODIURIL) 25 MG tablet, Take 1 (one) tablet (25 mg total) by mouth every morning ., Disp: , Rfl: insulin lispro 100 unit/mL InPn, 5 (five) Units 3 (three) times a day ., Disp: , Rfl: Levemir FlexPen 100 unit/mL (3 mL) InPn, INJECT 54 UNITS SUBCUTANEOUSLY TWICE DAILY, Disp: , Rfl: lisinopriL (PRINIVIL,ZESTRIL) 20 MG tablet, Take 1 (one) tablet (20 mg total) by mouth every morning ., Disp: , Rfl: metFORMIN (GLUCOPHAGE) 1000 MG tablet, Take 1 (one) tablet (1,000 mg total) by mouth 2 (two) times a day ., Disp: , Rfl: metoprolol tartrate (LOPRESSOR) 25 MG tablet, Take 1 (one) tablet (25 mg total) by mouth 2 (two) times a day ., Disp: , Rfl: OneTouch Delica Plus Lancet 33 gauge Misc, USE CHECK BLOOD GLUCOSE THREE TIMES DAILY, Disp: , Rfl: OneTouch Ultra Test strips, USE TO CHECK BLOOD GLUCOSE THREE TIMES DAILY, Disp: , Rfl: semaglutide (Ozempic) 0.25 mg or 0.5 mg (2 mg/3 mL) Pen, Inject under the skin once a week ., Disp: , Rfl: No Known Allergies Past Surgical History: Procedure Laterality Date TEMPLATE CATARACT Left TRIGGER FINGER RELEASE left middle finger TYMPANOMASTOIDECTOMY Left 05/23/2023 Procedure: TYMPANOMASTOIDECTOMY with CSF leak repair, graft harvest; Surgeon: Rodolfo Harmon MD; Location: [place]; Service: Otolaryngology Social History Socioeconomic History Marital status: Tobacco Use Smoking status: Former Types: Cigarettes Quit date: 2019 Years since quittin.0 Smokeless tobacco: Never Vaping Use Vaping Use: Never used Substance and Sexual Activity Alcohol use: Yes Comment: occasional Drug use: Never Family History Problem Relation Age of Onset Diabetes Mother Heart attack Father Coronary artery disease Father Diabetes Father No Known Problems Sister No Known Problems Sister Diabetes Brother Gout Brother Gout Brother PHYSICAL EXAM: The patient was examined today 06/11/2023 with findings as follows: CONSTITUTIONAL: General Appearance: well-appearing, nontoxic, alert, no acute distress Communication: normal voicing, hearing intact to spoken voice HEAD/FACE: Head: atraumatic, normocephalic, no lesions Facial Inspection: no lesions, healthy skin Facial Strength: motor strength normal, symmetric strength, symmetric movement EYES: Pupils: PERRLA, extra-ocular movements intact, no nystagmus, sclera white, no redness of eyes, no watering of eyes EARS: Bilateral External Ears: no pits, no tags Right External Ear: normally formed, no lesions, no mastoid tenderness Left External Ear: normally formed, no lesions, no mastoid tenderness Right External Auditory Canal: normal, healthy skin, no obstructing cerumen, no discharge Left External Auditory Canal: normal, healthy skin, no obstructing cerumen, no discharge Right Tympanic Membrane: normal landmarks, translucent Left Tympanic Membrane: normal landmarks, healed perforation with moist debris suctioned clear Hearing: intact to spoken voice, Neville lateralizes left, Rinne equal AC=BC NECK: Neck: no masses, trachea midline, normal range of motion, no cysts or pits, no tenderness to palpation LYMPH NODES: Cervical: no palpable lymph node enlargement SKIN: General Appearance: no lesions, warm and dry, normal turgor, no bruising PSYCHIATRIC: Mood and affect: normal mood, normal affect Assessment and Plan: He reports some discharge from the left ear. The perforation has healed. It is uncertain if there is recurrent middle ear fluid and ongoing observation is advised as this could represent ongoing CSF leakage if present. Overall, he appears to be healing well with no signs of infection. 1. CSF otorrhea 2. Perforated tympanic membrane on examination, right Return in about 3 months (around 09/09/2023). The patient and/or caregiver is to notify the office if no improvement or worsening of symptoms is noted prior to the scheduled follow-up for sooner evaluation. The patient and/or caregiver is able to state an understanding of these recommendations and is agreeable to the treatment plan. --Rodolfo Harmon MD on 06/11/2023 at 9:30 AM An electronic signature was used to authenticate this note. Review of Systems Constitutional: Negative. HENT: Negative. Eyes: Negative. Respiratory: Negative. Cardiovascular: Negative. Gastrointestinal: Negative. Endocrine: Negative. Genitourinary: Negative. Musculoskeletal: Negative. Skin: Negative. Neurological: Negative. Hematological: Negative. Psychiatric/Behavioral: Negative. documented in this encounter [facility] 05-28-2023 History of Presen t illness Narrative Formatting of this note is different fro m the original. [facility] [address] [facility] [place] [address] [facility] [address] Dept: [phone] MD Kit Gilmanard 68 y.o. male Patient presents with a chief complaint of Post-op (1 week post op tympanomastoid with CSF leak repair ) Temp 97.5 F (36.4 C) (Temporal) Ht 5' 9.5 Wt 125.7 kg (277 lb 3.2 oz) BMI 40.35 kg/m History of Presenting Illness: The patient/caregiver reports a history of complaint with the following features: He reports that he has had very little discharge from the left ear since surgery and this is much reduced form prior. He has very little pain at the ear or abdominal site. He denies any loss of hearing. Review of systems covering 10 systems is reviewed and pertinent positives and negatives are noted as above. Past Medical History: Diagnosis Date Back pain Diabetes mellitus, type 2 (HCC) Glaucoma Hearing loss currently only using a hearing aid in his right ear Heart murmur History of kidney stones Hyperlipidemia Hypertension Obesity Otorrhea Right bundle branch block Current Outpatient Medications: aspirin 81 mg chewable tablet, Chew and Swallow 1 (one) tablet (81 mg total) every morning ., Disp: , Rfl: atorvastatin (LIPITOR) 40 MG tablet, Take 1 (one) tablet (40 mg total) by mouth daily in the evening ., Disp: , Rfl: BD Ultra-Fine Micro Pen Needle 32 gauge x 1/4 Ndle, See Admin Instructions ., Disp: , Rfl: cefdinir (OMNICEF) 300 MG capsule, Take 1 (one) capsule (300 mg total) by mouth 2 (two) times a day for 7 days ., Disp: 14 capsule, Rfl: 0 ciprofloxacin-dexAMETHasone (CIPRODEX) otic suspension, Administer 4 (four) drops into both ears 2 (two) times a day ., Disp: 7.5 mL, Rfl: 0 hydroCHLOROthiazide (HYDRODIURIL) 25 MG tablet, Take 1 (one) tablet (25 mg total) by mouth every morning ., Disp: , Rfl: insulin lispro 100 unit/mL InPn, 5 (five) Units 3 (three) times a day ., Disp: , Rfl: Levemir FlexPen 100 unit/mL (3 mL) InPn, INJECT 54 UNITS SUBCUTANEOUSLY TWICE DAILY, Disp: , Rfl: lisinopriL (PRINIVIL,ZESTRIL) 20 MG tablet, Take 1 (one) tablet (20 mg total) by mouth every morning ., Disp: , Rfl: metFORMIN (GLUCOPHAGE) 1000 MG tablet, Take 1 (one) tablet (1,000 mg total) by mouth 2 (two) times a day ., Disp: , Rfl: metoprolol tartrate (LOPRESSOR) 25 MG tablet, Take 1 (one) tablet (25 mg total) by mouth 2 (two) times a day ., Disp: , Rfl: OneTouch Delica Plus Lancet 33 gauge Misc, USE CHECK BLOOD GLUCOSE THREE TIMES DAILY, Disp: , Rfl: OneTouch Ultra Test strips, USE TO CHECK BLOOD GLUCOSE THREE TIMES DAILY, Disp: , Rfl: semaglutide (Ozempic) 0.25 mg or 0.5 mg (2 mg/3 mL) Pen, Inject under the skin once a week ., Disp: , Rfl: No Known Allergies Past Surgical History: Procedure Laterality Date TEMPLATE CATARACT Left TRIGGER FINGER RELEASE left middle finger TYMPANOMASTOIDECTOMY Left 05/23/2023 Procedure: TYMPANOMASTOIDECTOMY with CSF leak repair, graft harvest; Surgeon: Rodolfo Harmon MD; Location: Main OR; Service: Otolaryngology Social History Socioeconomic History Marital status: Tobacco Use Smoking status: Former Types: Cigarettes Quit date: 2019 Years since quittin.0 Smokeless tobacco: Never Vaping Use Vaping Use: Never used Substance and Sexual Activity Alcohol use: Yes Comment: occasional Drug use: Never Family History Problem Relation Age of Onset Diabetes Mother Heart attack Father Coronary artery disease Father Diabetes Father No Known Problems Sister No Known Problems Sister Diabetes Brother Gout Brother Gout Brother PHYSICAL EXAM: The patient was examined today 05/28/2023 with findings as follows: CONSTITUTIONAL: General Appearance: well-appearing, nontoxic, alert, no acute distress Communication: normal voicing, hearing intact to spoken voice HEAD/FACE: Head: atraumatic, normocephalic, no lesions Facial Inspection: no lesions, healthy skin Facial Strength: motor strength normal, symmetric strength, symmetric movement EYES: Pupils: PERRLA, extra-ocular movements intact, no nystagmus, sclera white, no redness of eyes, no watering of eyes EARS: Bilateral External Ears: no pits, no tags Right External Ear: normally formed, no lesions, no mastoid tenderness Left External Ear: healing mastoid incision Right External Auditory Canal: normal, healthy skin, no obstructing cerumen, no discharge Left External Auditory Canal: normal, healthy skin, no obstructing cerumen, no discharge Right Tympanic Membrane: normal landmarks, translucent Left Tympanic Membrane: normal landmarks, small dry perforation at prior tube site Hearing: intact to spoken voice NECK: Neck: no masses, trachea midline, normal range of motion, no cysts or pits, no tenderness to palpation LYMPH NODES: Cervical: no palpable lymph node enlargement ABDOMEN: incision clean, dry, and intact, healing well SKIN: General Appearance: no lesions, warm and dry, normal turgor, no bruising PSYCHIATRIC: Mood and affect: normal mood, normal affect Assessment and Plan: He is healing very well after his mastoidectomy for his CSF otorrhea. The wounds are healing well and there is no active drainage from the small residual tympanic perforation. This is very hopeful for correction of the CSF leak. 1. CSF otorrhea 2. Chronic mastoiditis, left Return in about 2 weeks (around 06/11/2023). The patient and/or caregiver is to notify the office if no improvement or worsening of symptoms is noted prior to the scheduled follow-up for sooner evaluation. The patient and/or caregiver is able to state an understanding of these recommendations and is agreeable to the treatment plan. --Rodolfo Harmon MD on 05/28/2023 at 12:01 PM An electronic signature was used to authenticate this note. Review of Systems Constitutional: Negative. HENT: Negative. Eyes: Negative. Respiratory: Negative. Cardiovascular: Negative. Gastrointestinal: Negative. Endocrine: Negative. Genitourinary: Negative. Musculoskeletal: Negative. Skin: Negative. Allergic/Immunologic: Negative. Neurological: Negative. Hematological: Negative. Psychiatric/Behavioral: Negative. documented in this encounter [facility] 05-15-2023 Instructions Rodolfo Harmon MD - 05/15/2023 10:01 AM EST MIDDLE EAR SURGERY The ear is a complex organ that allows for hearing and balance. Disease of the middle ear may result in serious impairment of the hearing and balance functions of the ear, as well as cause pain, drainage, and risk of life threatening infection of the brain, skull bones, and blood vessels. Common problems of the ear include perforation (hole) of the eardrum, cholesteatoma (skin cyst behind the eardrum), chronic infection with pain, drainage and odor, and disease of the ear bones. Surgery may be necessary to return the ear to health, or reduce the risk of infection. Hearing loss may sometimes not be correctable or may occur as a result of the underlying disease or result from surgery. This may be secondarily treated after resolution of the primary condition requiring surgery. REASONS FOR SURGERY- How is the decision made? Surgery of the eardrum and middle ear is a decision to be made between the surgeon and the patient or family. ? Perforation (hole) in the eardrum that fails to heal on its own ? Cholesteatoma (skin cyst behind the eardrum) ? Chronic ear drainage, bleeding, pain, or odor ? Significant hearing loss due to abnormality of the ear bones, eardrum, or middle ear space ? Other problems as discussed with your doctor SURGICAL TREATMENT- What are the Risks, Alternatives, Potential Complications, and Benefits? ? Risks- The risks of ear surgery include: hearing loss; injury to the ear canal, eardrum, or middle ear; injury to the nerve controlling facial movement; injury to the nerve of taste sensation; injury to the balance organ, brain, or blood vessels; and need for revision surgery for recurrent disease. Hearing loss may require treatment with additional surgery, treatment with a hearing aid, or not be correctable. Removal of the nerve controlling taste is sometimes a necessary part of surgery. Bleeding is uncommon and is usually limited. A visible scar above or behind the ear is possible. There is a small risk from anesthesia. ? Alternatives- Some ear surgery is elective, which means that you may choose to have no treatment or to treat the problem with medication or by other means. For some conditions surgery is the only available treatment. Sometimes a decision to not have treatment can have serious consequences that you should discuss with your doctor. ? Complications- Injury to the nerve controlling facial movement resulting in loss of facial movement on one half of the face, complete hearing loss not treatable with a hearing aid, injury to the balance organ with severe dizziness, injury to the brain or brain lining, and injury to the blood vessels are serious complications of ear surgery. All of these complications are rare, but may require additional treatment. ? Benefits- Most middle ear surgery is without severe complications and the success in relieving most conditions is excellent with significant reduction in the frequency of ear infection, reduced pain, drainage or odor, and stable or improved hearing. ? Medical implants- hearing reconstruction (ossicular chain reconstruction) surgery may require small medical implants to replace the bones bones of hearing. These are generally compatible with CT and MRI imaging, are hypoallergenic, and not visible outside of the ear. Bone anchored hearing devices which are placed on the skull bone are visible behind the ear as a small metal post. Please discuss this with your doctor if you have additional questions or concerns. RECOVERY- What should I expect? Most patients have a rapid recovery and can resume normal activities later the same day as surgery after a short observation period. If nausea or vomiting is severe, an overnight stay in the hospital may be needed. Once you have gone home, common events in the recovery period and expectations of what is normal are listed below. Call your doctor if you have any questions or concerns that are not answered here. ? Pain- Pain is usually mild to moderate and is an expected part of recovery after surgery. Over the counter medications such as Tylenol?, Aspirin?, Advil?, Motrin?, Aleve?, and ibuprofen are generally adequate for relief of pain. Take only the medication prescribed by your doctor unless advised otherwise. If pain is severe or worsening, or not relieved by the pain medication taken as prescribed, call your doctor. ? Drainage- This may occur for a few days after surgery and should be clear to headley or pink in color. If bright red blood, pus, or foul smelling drainage is noted, call your doctor. ? Hearing loss- This results for packing material, swelling, blood, and drainage in the ear from surgery and is usually temporary. Over the next several weeks resolution of this loss is generally expected. A hearing test 6 to 9 weeks after surgery to assess hearing should be expected. ? Dizziness- This is not uncommon after surgery on the ear and will subside after a few days. If symptoms are severe, or show no improvement with healing, notify your doctor. ? Nausea and vomiting- These are usually due to the effects of anesthesia and should subside in the first day or two. If they continue beyond this, call your doctor. ? Fever- A low grade temperature of less than 102 F for a few days after surgery is normal. Notify your doctor for fever above this, or one that persists for greater than 3 days. ? Eating and drinking- A regular diet is usually well tolerated. ? Activity- Light activities are permitted, with advancement as tolerated. Do not drive or operate machinery while on narcotic pain medication or if you are feeling dizzy. Keep water from entering the ear with bathing. ? MEDICATIONS- Ask your doctor about resuming your home medications. Do not take herbal supplements as these often have blood thinning properties which may increase the risk of bleeding. CONTINUING CARE- What additional care do I need after surgery? DO NOT BLOW YOUR NOSE. This may dislodge any reconstruction that was performed due to air pressure in the middle ear space. Once healing is complete and as advised by your doctor, gentle blowing may be resumed. Ear plugs- The use of earplugs when around water is recommended. When the surgical incision is fresh, you should avoid any water exposure for at least 48 hours. After that time, a cotton ball coated with petroleum jelly may be placed to keep the ear dry during bathing. After healing is complete, you may purchase sized plugs at your doctor s office, or many commercial plugs are available at your favorite pharmacy. The most important factor is a comfortable fit that keeps water from entering the ear canal. Follow-up- Your doctor will see you for follow-up evaluation the day after surgery and then in approximately two weeks after surgery unless another time has been arranged. Call the office if an appointment has not been previously scheduled. A hearing test to confirm that hearing has returned to normal levels will also be performed when the ears are healthy and healing is complete. Ongoing visits for cleaning of the ear and monitoring for recurrent disease may be needed. NOTICE: THIS DOCUMENT IS INTENDED SOLELY FOR PATIENT EDUCATIONAL PURPOSES AND IS PROVIDED A COURTESY TO PATIENTS OF DR. RODOLFO HARMON MD. IT IS NOT INTENDED A SUBSTITUTE FOR PROFESSIONAL MEDICAL CARE OR ADVICE. THE PATIENT SHOULD SEEK ADVICE FROM THE PHYSICIAN IF THERE ARE ANY QUESTIONS ABOUT THE CONTENTS OR DIRECTIONS PROVIDED IN THIS DOCUMENT documented in this encounter [facility] 05-15-2023 History of Presen t illness Narrative Formatting of this note is different fro m the original. [facility] [address] [facility] [place] [address] [facility] [address] Dept: [phone] MD Kit Gilman 68 y.o. male Patient presents with a chief complaint of Follow-up (CT review) Temp 97.6 F (36.4 C) (Temporal) Ht 5' 9.5 Wt 99 kg (218 lb 4.8 oz) BMI 31.78 kg/m History of Presenting Illness: The patient/caregiver reports a history of complaint with the following features: He reports that he still has moisture on a tissue at night if he puts a tissue in the left ear canal. This does not drip out. There is no pain but a tickle like itch. This was treated with the Ciprodex drops with relief. He denies headaches. He has some morning nasal congestion. He has noted no difference with the use of the montelukast. The drainage is watery and usually at night. Review of systems covering 10 systems is reviewed and pertinent positives and negatives are noted as above. Past Medical History: Diagnosis Date Back pain Carpal tunnel syndrome Diabetes (HCC) Dyspnea Glaucoma Hearing loss Heart murmur History of kidney stones Hyperlipidemia Hypertension Obesity Otorrhea Right bundle branch block SOB (shortness of breath) Spondylosis Current Outpatient Medications: aspirin 81 mg chewable tablet, Chew and Swallow 1 (one) tablet (81 mg total) ., Disp: , Rfl: atorvastatin (LIPITOR) 40 MG tablet, , Disp: , Rfl: BD Ultra-Fine Micro Pen Needle 32 gauge x 1/4 Ndle, See Admin Instructions ., Disp: , Rfl: ciprofloxacin-dexAMETHasone (CIPRODEX) otic suspension, Administer 4 (four) drops into both ears 2 (two) times a day ., Disp: 7.5 mL, Rfl: 0 ciprofloxacin-dexAMETHasone (CIPRODEX) otic suspension, Administer 4 (four) drops into both ears 2 (two) times a day ., Disp: 7.5 mL, Rfl: 0 hydroCHLOROthiazide (HYDRODIURIL) 25 MG tablet, Take 1 (one) tablet (25 mg total) by mouth daily ., Disp: , Rfl: insulin lispro 100 unit/mL InPn, , Disp: , Rfl: Levemir FlexPen 100 unit/mL (3 mL) InPn, INJECT 54 UNITS SUBCUTANEOUSLY TWICE DAILY, Disp: , Rfl: lisinopriL (PRINIVIL,ZESTRIL) 20 MG tablet, , Disp: , Rfl: metFORMIN (GLUCOPHAGE) 1000 MG tablet, Take 1 (one) tablet (1,000 mg total) by mouth 2 (two) times a day ., Disp: , Rfl: metoprolol tartrate (LOPRESSOR) 25 MG tablet, Take 1 (one) tablet (25 mg total) by mouth 2 (two) times a day ., Disp: , Rfl: montelukast (Singulair) 10 mg tablet, Take 1 (one) tablet (10 mg total) by mouth nightly ., Disp: 90 tablet, Rfl: 3 ofloxacin (FLOXIN) 0.3 % otic solution, , Disp: , Rfl: OneTouch Delica Plus Lancet 33 gauge Misc, USE CHECK BLOOD GLUCOSE THREE TIMES DAILY, Disp: , Rfl: OneTouch Ultra Test strips, USE TO CHECK BLOOD GLUCOSE THREE TIMES DAILY, Disp: , Rfl: semaglutide (Ozempic) 0.25 mg or 0.5 mg (2 mg/3 mL) Pen, Inject under the skin ., Disp: , Rfl: No Known Allergies Past Surgical History: Procedure Laterality Date CARPAL TUNNEL RELEASE EYE SURGERY cataracts Social History Socioeconomic History Marital status: Tobacco Use Smoking status: Never Smokeless tobacco: Never Substance and Sexual Activity Alcohol use: Not Currently Drug use: Never Family History Problem Relation Age of Onset Heart attack Father Coronary artery disease Father PHYSICAL EXAM: The patient was examined today 05/15/2023 with findings as follows: CONSTITUTIONAL: General Appearance: well-appearing, nontoxic, alert, no acute distress Communication: normal voicing, hearing intact to spoken voice HEAD/FACE: Head: atraumatic, normocephalic, no lesions Facial Inspection: no lesions, healthy skin Facial Strength: motor strength normal, symmetric strength, symmetric movement EYES: Pupils: PERRLA, extra-ocular movements intact, no nystagmus, sclera white, no redness of eyes, no watering of eyes EARS: Bilateral External Ears: no pits, no tags Right External Ear: normally formed, no lesions, no mastoid tenderness Left External Ear: normally formed, no lesions, no mastoid tenderness Right External Auditory Canal: normal, healthy skin, no obstructing cerumen, no discharge Left External Auditory Canal: normal, healthy skin, no obstructing cerumen, no discharge Right Tympanic Membrane: normal landmarks, translucent, no perforation Left Tympanic Membrane: normal landmarks, translucent, tube in place and patent, serous discharge Hearing: intact to spoken voice NOSE: Nasal Skin: no lesions, no lacerations, no scars Nasal Dorsum: symmetric with no visible or palpable deformities Nasal Tip: normal symmetric nasal tip, normal nasal valves Nasal Mucosa: pale boggy with clear secretion Septum: not markedly deformed, midline, no exposed vessels, no bleeding, no septal granuloma Turbinates: normal size and conformation Nasopharynx: normal NECK: Neck: no masses, trachea midline, normal range of motion, no cysts or pits, no tenderness to palpation LYMPH NODES: Cervical: no palpable lymph node enlargement SKIN: General Appearance: no lesions, warm and dry, normal turgor, no bruising PSYCHIATRIC: Mood and affect: normal mood, normal affect Assessment and Plan: He presents with ongoing otorrhea. Testing for Beta-2 transferrin is positive and CT temporal bone imaging is independently reviewed which shows a likely area of dehiscence and is the suspected site of leakage. Repair options either transmastoid vs transcranial are discussed. This appears amenable to a transmastoid approach and he prefers this option. The risk of reduced hearing if packing impedes ossicular mobility is discussed as well as failure to seal and need for additional surgery. Surgical treatment is recommended upon review of the patient's history, clinical presentation, exam, and available testing and laboratory data. The risks, alternatives, potential complications, and benefits of surgery are discussed at length. The surgical procedure, pre-operative preparation, and post-operative course are discussed. Any questions are answered to the patient's and/or caregiver's satisfaction and they are agreeable to proceed. An informational sheet covering this information is also provided. Witnessed informed surgical consent is signed in the office. The patient and/or caregiver is able to state an understanding of these recommendations and is agreeable to the treatment plan. 1. CSF otorrhea Case Request Operating Room: TYMPANOMASTOIDECTOMY with CSF leak repair, graft harvest Height and weight Vital signs Basic Metabolic Panel ECG 12 Lead POC Glucose 2. Chronic mastoiditis, left No follow-ups on file. The patient and/or caregiver is to notify the office if no improvement or worsening of symptoms is noted prior to the scheduled follow-up for sooner evaluation. The patient and/or caregiver is able to state an understanding of these recommendations and is agreeable to the treatment plan. --Rodolfo Harmon MD on 05/15/2023 at 10:00 AM An electronic signature was used to authenticate this note. Review of Systems Constitutional: Negative. HENT: Positive for ear discharge. Left ear drainage, little worse Respiratory: Negative. Cardiovascular: Negative. Gastrointestinal: Negative. Endocrine: Negative. Genitourinary: Negative. Musculoskeletal: Negative. Skin: Negative. Allergic/Immunologic: Negative. Neurological: Negative. Hematological: Negative. Psychiatric/Behavioral: Negative. documented in this encounter [facility] 03-26-2023 History of Presen t illness Narrative Formatting of this note is different fro m the original. [facility] [address] [facility] [place] [address] [facility] [address] Dept: [phone] MD Kit Gilman Terri 68 y.o. male Patient presents with a chief complaint of 3mo f/u tube check There were no vitals taken for this visit. History of Presenting Illness: The patient/caregiver reports a history of complaint with the following features: He reports that he still has moisture on a tissue at night if he puts a tissue in the left ear canal. This does not drip out. There is no pain but a tickle like itch. This was treated with the Ciprodex drops with relief. He denies headaches. He has some morning nasal congestion. He has noted no difference with the use of the montelukast. The drainage is watery and usually at night. Review of systems covering 10 systems is reviewed and pertinent positives and negatives are noted as above. Past Medical History: Diagnosis Date Back pain Carpal tunnel syndrome Diabetes (HCC) Dyspnea Glaucoma Hearing loss Heart murmur History of kidney stones Hyperlipidemia Hypertension Obesity Otorrhea Right bundle branch block SOB (shortness of breath) Spondylosis Current Outpatient Medications: aspirin 81 mg chewable tablet, Chew and Swallow 1 (one) tablet (81 mg total) ., Disp: , Rfl: atorvastatin (LIPITOR) 40 MG tablet, , Disp: , Rfl: BD Ultra-Fine Micro Pen Needle 32 gauge x 1/4 Ndle, See Admin Instructions ., Disp: , Rfl: ciprofloxacin-dexAMETHasone (CIPRODEX) otic suspension, Administer 4 (four) drops into both ears 2 (two) times a day ., Disp: 7.5 mL, Rfl: 0 ciprofloxacin-dexAMETHasone (CIPRODEX) otic suspension, Administer 4 (four) drops into both ears 2 (two) times a day ., Disp: 7.5 mL, Rfl: 0 hydroCHLOROthiazide (HYDRODIURIL) 25 MG tablet, Take 1 (one) tablet (25 mg total) by mouth daily ., Disp: , Rfl: insulin lispro 100 unit/mL InPn, , Disp: , Rfl: Levemir FlexPen 100 unit/mL (3 mL) InPn, INJECT 54 UNITS SUBCUTANEOUSLY TWICE DAILY, Disp: , Rfl: lisinopriL (PRINIVIL,ZESTRIL) 20 MG tablet, , Disp: , Rfl: metFORMIN (GLUCOPHAGE) 1000 MG tablet, Take 1 (one) tablet (1,000 mg total) by mouth 2 (two) times a day ., Disp: , Rfl: metoprolol tartrate (LOPRESSOR) 25 MG tablet, Take 1 (one) tablet (25 mg total) by mouth 2 (two) times a day ., Disp: , Rfl: montelukast (Singulair) 10 mg tablet, Take 1 (one) tablet (10 mg total) by mouth nightly ., Disp: 90 tablet, Rfl: 3 ofloxacin (FLOXIN) 0.3 % otic solution, , Disp: , Rfl: OneTouch Delica Plus Lancet 33 gauge Misc, USE CHECK BLOOD GLUCOSE THREE TIMES DAILY, Disp: , Rfl: OneTouch Ultra Test strips, USE TO CHECK BLOOD GLUCOSE THREE TIMES DAILY, Disp: , Rfl: semaglutide (Ozempic) 0.25 mg or 0.5 mg (2 mg/3 mL) Pen, Inject under the skin ., Disp: , Rfl: No Known Allergies Past Surgical History: Procedure Laterality Date CARPAL TUNNEL RELEASE EYE SURGERY cataracts Social History Socioeconomic History Marital status: Tobacco Use Smoking status: Never Smokeless tobacco: Never Substance and Sexual Activity Alcohol use: Not Currently Drug use: Never Family History Problem Relation Age of Onset Heart attack Father Coronary artery disease Father PHYSICAL EXAM: The patient was examined today 03/26/2023 with findings as follows: CONSTITUTIONAL: General Appearance: well-appearing, nontoxic, alert, no acute distress Communication: normal voicing, hearing intact to spoken voice HEAD/FACE: Head: atraumatic, normocephalic, no lesions Facial Inspection: no lesions, healthy skin Facial Strength: motor strength normal, symmetric strength, symmetric movement EYES: Pupils: PERRLA, extra-ocular movements intact, no nystagmus, sclera white, no redness of eyes, no watering of eyes EARS: Bilateral External Ears: no pits, no tags Right External Ear: normally formed, no lesions, no mastoid tenderness Left External Ear: normally formed, no lesions, no mastoid tenderness Right External Auditory Canal: normal, healthy skin, no obstructing cerumen, no discharge Left External Auditory Canal: normal, healthy skin, no obstructing cerumen, no discharge Right Tympanic Membrane: normal landmarks, translucent, no perforation Left Tympanic Membrane: normal landmarks, translucent, tube in place and patent Hearing: intact to spoken voice NOSE: Nasal Skin: no lesions, no lacerations, no scars Nasal Dorsum: symmetric with no visible or palpable deformities Nasal Tip: normal symmetric nasal tip, normal nasal valves Nasal Mucosa: pale boggy with clear secretion Septum: not markedly deformed, midline, no exposed vessels, no bleeding, no septal granuloma Turbinates: normal size and conformation Nasopharynx: normal NECK: Neck: no masses, trachea midline, normal range of motion, no cysts or pits, no tenderness to palpation LYMPH NODES: Cervical: no palpable lymph node enlargement SKIN: General Appearance: no lesions, warm and dry, normal turgor, no bruising PSYCHIATRIC: Mood and affect: normal mood, normal affect Assessment and Plan: He continues with some scant watery discharge from the left ear tube. This has failed to resolved despite multiple medial therapies. Testing for possible CSF source is advised at this time. He has had no benefit from the montelukast and he may stop this. A refill of the Ciprodex is given as this does give some relief. 1. Otorrhea of left ear Beta 2 Transferrin, Body Fluid ciprofloxacin-dexAMETHasone (CIPRODEX) otic suspension 2. Chronic mastoiditis, left Return in about 3 months (around 06/26/2023). The patient and/or caregiver is to notify the office if no improvement or worsening of symptoms is noted prior to the scheduled follow-up for sooner evaluation. The patient and/or caregiver is able to state an understanding of these recommendations and is agreeable to the treatment plan. --Rodolfo Harmon MD on 03/26/2023 at 10:55 AM An electronic signature was used to authenticate this note. documented in this encounter [facility] 12-12-2022 History of Presen t illness Narrative Formatting of this note is different fro m the original. [facility] [address] [facility] [place] [address] [facility] [id number] Dept: [phone] MD Kit Gilman 67 y.o. male Patient presents with a chief complaint of Follow-up (Ear tube f/u after placement ) Temp 99 F (37.2 C) Ht 5' 9.5 Wt 103.7 kg (228 lb 11.2 oz) BMI 33.29 kg/m History of Presenting Illness: The patient/caregiver reports a history of complaint with the following features: He reports that his hearing is much better after ear tube placement. The discharge has improved, but still occurs some at night. He denies any ear pain or fever. Review of systems covering 10 systems is reviewed and pertinent positives and negatives are noted as above. Past Medical History: Diagnosis Date Back pain Carpal tunnel syndrome Diabetes (HCC) Dyspnea Glaucoma Hearing loss Heart murmur History of kidney stones Hyperlipidemia Hypertension Obesity Otorrhea Right bundle branch block SOB (shortness of breath) Spondylosis Current Outpatient Medications: aspirin 81 mg chewable tablet, Chew and Swallow 1 (one) tablet (81 mg total) ., Disp: , Rfl: atorvastatin (LIPITOR) 40 MG tablet, , Disp: , Rfl: BD Ultra-Fine Micro Pen Needle 32 gauge x 1/4 Ndle, See Admin Instructions ., Disp: , Rfl: hydroCHLOROthiazide (HYDRODIURIL) 25 MG tablet, Take 1 (one) tablet (25 mg total) by mouth daily ., Disp: , Rfl: insulin lispro 100 unit/mL InPn, , Disp: , Rfl: Levemir FlexPen 100 unit/mL (3 mL) InPn, INJECT 54 UNITS SUBCUTANEOUSLY TWICE DAILY, Disp: , Rfl: lisinopriL (PRINIVIL,ZESTRIL) 20 MG tablet, , Disp: , Rfl: metFORMIN (GLUCOPHAGE) 1000 MG tablet, Take 1 (one) tablet (1,000 mg total) by mouth 2 (two) times a day ., Disp: , Rfl: metoprolol tartrate (LOPRESSOR) 25 MG tablet, Take 1 (one) tablet (25 mg total) by mouth 2 (two) times a day ., Disp: , Rfl: ofloxacin (FLOXIN) 0.3 % otic solution, , Disp: , Rfl: OneTouch Delica Plus Lancet 33 gauge Misc, USE CHECK BLOOD GLUCOSE THREE TIMES DAILY, Disp: , Rfl: OneTouch Ultra Test strips, USE TO CHECK BLOOD GLUCOSE THREE TIMES DAILY, Disp: , Rfl: ciprofloxacin-dexAMETHasone (CIPRODEX) otic suspension, Administer 4 (four) drops into both ears 2 (two) times a day ., Disp: 7.5 mL, Rfl: 0 No Known Allergies Past Surgical History: Procedure Laterality Date CARPAL TUNNEL RELEASE EYE SURGERY cataracts Social History Socioeconomic History Marital status: Tobacco Use Smoking status: Never Smokeless tobacco: Never Substance and Sexual Activity Alcohol use: Not Currently Drug use: Never Family History Problem Relation Age of Onset Heart attack Father Coronary artery disease Father PHYSICAL EXAM: The patient was examined today 12/12/2022 with findings as follows: CONSTITUTIONAL: General Appearance: well-appearing, nontoxic, alert, no acute distress Communication: normal voicing, hearing intact to spoken voice HEAD/FACE: Head: atraumatic, normocephalic, no lesions Facial Inspection: no lesions, healthy skin Facial Strength: motor strength normal, symmetric strength, symmetric movement EYES: Pupils: PERRLA, extra-ocular movements intact, no nystagmus, sclera white, no redness of eyes, no watering of eyes EARS: Bilateral External Ears: no pits, no tags Right External Ear: normally formed, no lesions, no mastoid tenderness Left External Ear: normally formed, no lesions, no mastoid tenderness Right External Auditory Canal: normal, healthy skin, no obstructing cerumen, no discharge Left External Auditory Canal: normal, healthy skin, no obstructing cerumen, no discharge Right Tympanic Membrane: normal landmarks, translucent, no perforation Left Tympanic Membrane: normal landmarks, translucent, tube in place and patent with scant mucoid discharge, suctioned clear Hearing: intact to spoken voice NECK: Neck: no masses, trachea midline, normal range of motion, no cysts or pits, no tenderness to palpation LYMPH NODES: Cervical: no palpable lymph node enlargement SKIN: General Appearance: no lesions, warm and dry, normal turgor, no bruising PSYCHIATRIC: Mood and affect: normal mood, normal affect Assessment and Plan: He has some continued discharge but this is continuing to decrease. I have asked him to continue the Ciprodex drops for another [address] imaging if drainage continues is considered. 1. Chronic mastoiditis, left 2. Chronic serous otitis media of left ear ciprofloxacin-dexAMETHasone (CIPRODEX) otic suspension Return in about 3 months (around 03/14/2023). The patient and/or caregiver is to notify the office if no improvement or worsening of symptoms is noted prior to the scheduled follow-up for sooner evaluation. The patient and/or caregiver is able to state an understanding of these recommendations and is agreeable to the treatment plan. --Rodolfo Harmon MD on 12/12/2022 at 3:44 PM An electronic signature was used to authenticate this note. Review of Systems Constitutional: Negative. HENT: Positive for ear discharge (left ear, clear, odorless). Eyes: Negative. Respiratory: Negative. Cardiovascular: Negative. Gastrointestinal: Negative. Endocrine: Negative. Genitourinary: Negative. Musculoskeletal: Negative. Skin: Negative. Allergic/Immunologic: Negative. Neurological: Negative. Hematological: Negative. Psychiatric/Behavioral: Negative. documented in this encounter [facility] O[facility]rhea of left ear- Primary Chronic mastoiditis, left [facility] CSF o[facility]- [facility] Diagnosis CSF otorrhea- Primary Chronic mastoiditis, left [facility] Diagnosis CSF otorrhea- Primary Chronic mastoiditis, left [facility] Diagnosis CSF otorrhea- Primary Chronic mastoiditis, left [facility] Diagnosis CSF otorrhea- Primary Perforated tympanic membrane on examination, right [facility] Diagnosis Mixed hearing loss, bilateral- Primary documented in this encounter [facility] Reason for Referral Specialty Diagnoses / Procedures Referred By Usman villegas Referred To Contact Radiology Diagnoses CSF otorrhea Procedures CT Temporal Bone Without Contrast Rodolfo Harmon MD [address] [place] [address] Referral ID Status Reason Start Date Expiration Date V isits Requested Visits Authorized [id number] Authorized 04/18/2023 04/17/2024 1 1 Summary Purpose Family History No Family History Records FoundNo Family History Records FoundNo Family History Records Found Advance Directives Latest Code Status on File Code Status Date Activated Date Inactivated Comments Full Code 05/23/2023 2:06 PM 05/23/2023 5:34 PM Additional Source Comments Reason for Visit (unrecogniz ed section and content) Reason Comments 3mo f/u tube check Reason Comments Follow-up CT review Reason Comments Post-op 1 week post op tympa nomastoid with CSF leak repair Reason Comments Follow-up 2 week follow up Care Teams (unrecognized sec tion and content) Controller Instructor Relationship Specialty Start Date End Date Ada Rojas MD [address] [place] [address] PCP - General Internal Medicine 10/24/22 Controller Instructor Relationship Specialty Start Date End Date Ada Rojas MD [facility] [place] [address] PCP - General Internal Medicine 10/24/22 Controller Instructor Relationship Specialty Start Date End Date Ada Rojas MD [facility] [place] [address] PCP - General Internal Medicine 10/24/22 Controller Instructor Relationship Specialty Start Date End Date Ada Rojas MD [address] [place] [address] PCP - General Internal Medicine 10/24/22 Controller Instructor Relationship Specialty Start Date End Date Ada Rojas MD [facility] [place] [address] PCP - General Internal Medicine 10/24/22 Controller Instructor Relationship Specialty Start Date End Date Ada Rojas MD [facility] [place] [address] PCP - General Internal Medicine 10/24/22 (unrecognized sect ion and content) No Status Records FoundNo Status Records FoundNo Status Records Found INFORMATION SOURCE (unrecogn ized section and content) DATE CREATED AUTHOR AUTHOR'S ORGANIZ ATION 06/23/2023 [facility] DATE CREATED AUTHOR AUTHOR'S ORGANIZ ATION 06/24/2023 [facility] FOR RECORDS PERTAINING TO PATIENTS WHO ARE OR HAVE BEEN ENROLLED IN A CHEMICAL DEPENDENCY/SUBSTANCEABUSE PROGRAM, SOME INFORMATION MAY BE OMITTED. This clinical summary was aggregated from multiple sources. Caution should be exercised in using it in the provision of clinical care. This summary normalizes information from multiple sources, and as a consequence, information in this document may materially change the coding, format and clinical context of patient data. In addition, data may be omitted in some cases. CLINICAL DECISIONS SHOULD BE BASED ON THE PRIMARY CLINICAL RECORDS. [facility] provides no warranty or guarantee of the accuracy or completeness of information in this document.
[2023-07-02 12:29] LABS: Absolute Lymphocyte Count 1.67 X10^3/uL (0.83-4.51); Absolute Neutrophil Count 5.7 X10^3/uL (2.0-7.7); Basophil# 0.09 X10^3/uL; Basophil% 1.1 % (0-1); Eosinophil# 0.27 X10^3/uL; Eosinophils% 3.2 % (0-5); Hemoglobin 12.7 g/dL (13.0-16.5); Lymphocyte # 1.67 X10^3/ul (0.83-4.51); Lymphocyte % 20.1 % (19-41); Mean Corp Hgb Conc 31.8 g/dL (32-36); Mean Corpuscular Hgb 27.8 pg (27.0-32.0); Mean Corpuscular Volume 87.5 fL (80-94); Mean Platelet Vol. 10.4 fl (6.2-12.0); Monocyte# 0.52 X10^3/uL; Monocyte% 6.3 % (0-10); NRBC Flagged by Analyzer 0 % (0-5); Neutrophil # 5.73 X10^3/uL (2.7-7.7); Neutrophil % 68.9 % (47-70); Platelet Count 258 K/mm3 (150-450); RBC Distribution Width CV 13.6 % (11.6-14.6); RBC Distribution Width SD 43.2 fl (35.1-43.9); Red Blood Count 4.57 M/mm3 (4.6-6.2); White Blood Count 8.3 K/mm3 (4.4-11.0)
[2023-07-02 13:19] LABS: ALB/GLOB Ratio 1.1 RATIO (0.9-2.4); AST(SGOT) 23 U/L (15-37); Alanine Aminotransfer ALT/SGPT 36 U/L (16-61); Albumin, Serum 3.9 g/dL (3.2-5.0); Alkaline Phosphatase 56 U/L (45-117); Anion Gap 5 (5-15); BUN 24 mg/dL (7-18); BUN/Creat Ratio 17.3 RATIO (10-20); Calcium,Total 9.7 mg/dL (8.5-10.1); Chloride 106 mmol/L (98-107); Creatinine, Serum 1.39 mg/dL (0.70-1.30); EST Glomerular Filtration Rate 54 mL/min (>60); Est Glom Filt Rate - Afr Amer 66 mL/min (>60); Globulin 3.6 g/dL (2.2-4.2); Glucose 159 mg/dL (74-106); Potassium 5.1 mmol/L (3.5-5.1); Protein, Total 7.5 g/dL (6.4-8.2); Sodium Level 138 mmol/L (136-145)
== END | disposition home or self-care (01) ==
LOC: BIMLAB 10:34
PROVIDERS: PCP Internal Medicine; Visit Provider Internal Medicine
DX: I10 Essential (primary) hypertension (principal); E11.9 Type 2 diabetes mellitus without complications
CPT/HCPCS: 36415; 80053; 85025

== ENCOUNTER → 2023-07-10 | Outpatient (CLI) | payer MEDICARE, BC, SELFPAY ==
[2023-07-10 13:32] LABS: Microalbumin,Random Urine 22.3 mg/L (NO RANGE EST.); Microalbumin:Creatinine Ratio 24.8 mg/g CRE (<30 mg/g CRE)
== END | disposition home or self-care (01) ==
LOC: LABSPEC 11:39
PROVIDERS: PCP Internal Medicine; Visit Provider Internal Medicine
DX: E11.9 Type 2 diabetes mellitus without complications (principal)
CPT/HCPCS: 82043; 82570

== ENCOUNTER → 2024-01-04 | Outpatient (CLI) | payer MEDICARE, BC, SELFPAY ==
[2024-01-04 12:34] LABS: Absolute Lymphocyte Count 1.99 X10^3/uL (0.83-4.51); Basophil# 0.07 X10^3/uL; Basophil% 0.9 % (0-1); Eosinophil# 0.21 X10^3/uL; Eosinophils% 2.7 % (0-5); Hematocrit 37.7 % (40-54); Hemoglobin 12.2 g/dL (13.0-16.5); Lymphocyte # 1.99 X10^3/ul (0.83-4.51); Lymphocyte % 25.3 % (19-41); Mean Corp Hgb Conc 32.4 g/dL (32-36); Mean Corpuscular Hgb 28.2 pg (27.0-32.0); Mean Corpuscular Volume 87.1 fL (80-94); Mean Platelet Vol. 10.6 fl (6.2-12.0); Microalbumin,Random Urine 10.6 mg/L (NO RANGE EST.); Microalbumin:Creatinine Ratio 6.9 mg/g CRE (<30 mg/g CRE); Monocyte# 0.53 X10^3/uL; Monocyte% 6.7 % (0-10); NRBC Flagged by Analyzer 0 % (0-5); Neutrophil # 5.03 X10^3/uL (2.7-7.7); Neutrophil % 63.8 % (47-70); Platelet Count 236 K/mm3 (150-450); RBC Distribution Width CV 13.5 % (11.6-14.6); RBC Distribution Width SD 42.5 fl (35.1-43.9); Red Blood Count 4.33 M/mm3 (4.6-6.2); White Blood Count 7.9 K/mm3 (4.4-11.0)
[2024-01-04 12:49] LABS: ALB/GLOB Ratio 1.1 RATIO (0.9-2.4); AST(SGOT) 22 U/L (15-37); Alanine Aminotransfer ALT/SGPT 28 U/L (16-61); Albumin, Serum 3.8 g/dL (3.2-5.0); Alkaline Phosphatase 55 U/L (45-117); Anion Gap 9 (5-15); BUN 27 mg/dL (7-18); Calcium,Total 9.5 mg/dL (8.5-10.1); Chloride 106 mmol/L (98-107); Cholesterol 123 mg/dL (200); Creatinine, Serum 1.42 mg/dL (0.70-1.30); EST Glomerular Filtration Rate 53 mL/min (>60); Est Glom Filt Rate - Afr Amer 64 mL/min (>60); Globulin 3.5 g/dL (2.2-4.2); Glucose 80 mg/dL (74-106); High Density Lipoprotein 38 mg/dL; PSA,Total - Annual Screen 3.14 ng/mL (0.00-4.00); Potassium 3.8 mmol/L (3.5-5.1); Protein, Total 7.3 g/dL (6.4-8.2); Sodium Level 140 mmol/L (136-145); Triglycerides 181 mg/dL; Very Low Density Lipoprotein 36 mg/dL (5-40)
== END | disposition home or self-care (01) ==
LOC: BIMLAB 08:39
PROVIDERS: PCP Internal Medicine; Visit Provider Internal Medicine
DX: E11.9 Type 2 diabetes mellitus without complications (principal); Z12.5 Encounter for screening for malignant neoplasm of prostate; I10 Essential (primary) hypertension
CPT/HCPCS: 36415; 80053; 80061; 82043; 82570; 84153; 85025; G0103

== ENCOUNTER → 2024-04-02 | Outpatient (CLI) | payer MEDICARE, BC, SELFPAY ==
[2024-04-02 12:20] LABS: Anion Gap 6 (5-15); BUN 31 mg/dL (7-18); BUN/Creat Ratio 20.7 RATIO (10-20); Calcium,Total 9.2 mg/dL (8.5-10.1); Chloride 108 mmol/L (98-107); EST Glomerular Filtration Rate 50 mL/min (>60); Est Glom Filt Rate - Afr Amer 60 mL/min (>60); Glucose 104 mg/dL (74-106); Potassium 4.3 mmol/L (3.5-5.1); Sodium Level 141 mmol/L (136-145)
== END | disposition home or self-care (01) ==
PROVIDERS: PCP Internal Medicine; Referring Provider Internal Medicine; Visit Provider Internal Medicine
DX: E11.9 Type 2 diabetes mellitus without complications (principal); E55.9 Vitamin D deficiency, unspecified
CPT/HCPCS: 36415; 80048; 82306

== ENCOUNTER 2024-05-21 06:00 | Day surgery (SDC) | payer MEDICARE, BC, SELFPAY ==
--- NOTE | 2024-05-19 14:34 | PAT.ANESEVAL ---
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 When Was Last Pacemaker Check QUESTION #4 FULL TEXT: You/Your Family Experience fever (hyperthermia) with Anesthesia Last Oral Intake Last Oral intake: Last Oral Intake NPO since Meds taken in AM with sips of water? Meds patient instructed to take am of surgery PONV PONV - night shift supervisor: PONV - night shift supervisor Female No 05/19/24 13:42 HX of Motion Sickness No 05/19/24 13:42 HX of N/V After Surgery No 05/19/24 13:42 Non-Smoker Yes 05/19/24 13:42 Duration of Surgery greater No 05/19/24 13:42 than 60 minutes Number of Risk Factors 1 05/19/24 13:42 PONV Score Low Risk 05/19/24 13:42 Height & Weight Height & Weight: Anesthesia: Height & Weight Height 5 ft 9 in 04/08/24 11:13 Respiratory Assessment Respiratory Assessment - night shift supervisor: Respiratory Tract Infection Hx - night shift supervisor Hx Respiratory Tract Infection No 05/19/24 13:42 STOP Sleep Apnea STOP Sleep Apnea - night shift supervisor: STOP Sleep Apnea - night shift supervisor Hx Hypertension Yes: CONTROLLED WITH MED 05/19/24 13:42 Hx Sleep Apnea No 05/19/24 13:42 CPAP BIPAP Do you snore loudly (louder No 05/19/24 13:42 than talking or can be heard Do you often feel tired/ No 05/19/24 13:42 fatigued/ sleepy during daytime? Has anyone observed you stop No 05/19/24 13:42 breathing during sleep? STOP Results Negative 05/19/24 13:42 QUESTION #5 FULL TEXT : Do you snore loudly (louder than talking or can be heard through closed doors)? 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 Specify any problems Hx of Preganancy in last 3 N/A 05/19/24 13:42 Months Nurse Filling Out Transfusion NBUCHER 05/19/24 13:42 & Questions: Date: 05/19/24 05/19/24 13:42 Time: 13:43 05/19/24 13:42 Patient unable to answer at this time (ie. confused, unrespo /Reproduction History /Reproductive History - night shift supervisor: /Reproductive Hx- night shift supervisor Hx Now No 05/19/24 13:42 Gestational Age (in weeks): EDC: Hx Hx Para Hx Section SAB No 05/19/24 13:42 PFSH Medical History (Updated 05/19/24 @ 13:49 by Taylor Jimenez) Wears hearing aid Loss of hearing Wears glasses Wears dentures Wears partial dentures High cholesterol Former smoker History of echocardiogram History of stress test Cardiology follow-up encounter Hypertension History of trigger finger CKD (chronic kidney disease), stage III Health care maintenance Colon cancer screening Bilateral shoulder pain CSF leak Vitamin D deficiency Drainage from left ear Insulin dependent diabetes mellitus Hyperlipidemia RBBB Type 2 diabetes mellitus Essential hypertension History of fracture of ankle Heart murmur History of kidney stones Hyperlipemia Hearing problem Glaucoma Carpal tunnel syndrome Cataracts, bilateral Bone fracture Back problem Home Medications ?Medication ?Instructions ?Recorded ?Last Taken ?Type latanoprost 0.005 % eye drops 1 drp ophthalmic (eye) QPM 10/28/20 Unknown History aspirin 81 mg tablet,delayed 81 mg PO DAILY 12/06/20 Unknown History release (Adult Low Dose Aspirin) blood sugar diagnostic #100 ea 02/28/22 Unknown Rx blood sugar diagnostic (OneTouch #200 ea 10/05/22 Unknown Rx Ultra Test strips) blood-glucose meter (OneTouch #1 ea 10/05/22 Unknown Rx Ultra2 Meter) lancets 33 gauge #200 ea 10/05/22 Unknown Rx flash glucose scanning reader #1 ea 01/01/23 Unknown Rx (FreeStyle Marielle 2 Gallant) pen needle, diabetic 29 gauge x #200 ea 02/15/23 Unknown Rx 1/2 (BD Ultra-Fine Original Pen Needle) pen needle, diabetic 33 gauge x #100 ea 02/15/23 Unknown Rx 1/4 (Comfort Touch Pen Needle) insulin lispro 100 unit/mL 7 unit (0.07 mL) subcut TID 3 10/03/23 Unknown Rx subcutaneous pen (Humalog KwikPen months #18.9 mL (U-100) Insulin) hydrochlorothiazide 25 mg tablet 25 mg PO DAILY #90 tabs 10/15/23 Unknown Rx pen needle, diabetic 31 gauge x #200 ea 11/28/23 Unknown Rx 1/4 (Comfort EZ Pen [place]) semaglutide 2 mg/dose (8 mg/3 mL) 2 mg (0.75 mL) subcut QWEEK 3 12/10/23 05/11/24 Rx subcutaneous pen injector (Ozempic) months #9.75 mL atorvastatin 40 mg tablet 40 mg PO QHS #90 tabs 12/22/23 Unknown Rx flash glucose sensor (FreeStyle #1 ea 01/22/24 Unknown Rx Marielle 2 Sensor kit) metformin 1,000 mg tablet 1,000 mg PO BID #180 tabs 02/20/24 Unknown Rx cholecalciferol (vitamin D3) 25 75 mcg PO QDAY 04/08/24 Unknown History mcg (1,000 unit) capsule insulin degludec 200 unit/mL (3 56 unit (0.28 mL) subcut BID 3 05/08/24 Unknown Rx mL) subcutaneous pen (Tresiba months #50.4 mL FlexTouch U-200 insulin) metoprolol tartrate 25 mg tablet 25 mg PO BID #180 tabs 05/09/24 Unknown Rx lisinopril 20 mg tablet 20 mg PO BID #90 tabs 05/19/24 Unknown Rx Allergy/AdvReac Type Severity Reaction Status Date / Time No Known Allergies Allergy Verified 05/19/24 13:37 Family History Father Myocardial infarction, Onset Age: 55 CAD (coronary artery disease) Other Diabetes Hyperlipemia Hypertension Surgical History Hx of colonoscopy History of ear surgery Social History (Updated 04/08/24 @ 11:08 by Claudia Ellison) household members: spouse current occupational status: retired Smoking Status: Former smoker alcohol intake: current alcohol intake frequency: a few times a week Alcohol type: beer substance use type: does not use caffeine: Yes Type: carbonated beverages Number of servings: 3 and coffee Number of servings: 5 what type of physical activity do you participate in: none Audit: Pertinent Findings Pertinent Findings EKG Perinent findings: 12/06/2020 sinus rhythm left axis deviation right bundle branch block possible left anterior fascicular block Stress test pertinent findings: 12/21/2020 essentially negative EF 67% Echo (EF%) pertinent findings: 12/21/2020 normal function EF 68% Consult pertinent findings: Cardiology 01/17/2021 abnormal EKG noninvasive evaluation negative no further evaluation needed Recommendation Anesthesia Recommendation Anesthesia recommendation: OPTIMIZED for anesthesia
[2024-05-21] VITALS (7 sets, daily range): BP systolic 100–132; BP diastolic 64–85; PULSE 75–84; RESP 14–18; TEMP 35.8–36.8; O2SAT 93–97; BMI 31.6
--- NOTE | 2024-05-21 06:53 | PCM.PRE.AN2 ---
ASA Classification* ASA Classification ASA Classification: 2 Assessment & Plan Anesthesia* Anesthesia Assessment Anesthesia Assessment: Discussed sedation and/or anesthesia options, risks, benefits, and alternatives with patient/parents/legal guardian/POA. Questions invited. The patient/parents/legal guardian/POA seems to understand and agrees to proceed with anesthesia plan. Reviewed the physical assessment, medical history, allergy history and patient home medications list prior to surgery/procedure/anesthetic and documented any changes. Performed airway and anesthesia risk assessments. Anesthesia Type Anesthesia Type: MAC Anesthesia Focused Assessment* Temperature: 96.4 F Pulse Rate: 80 Blood Pressure: 132/64 Respiratory Rate: 18 Pulse Ox: 97 Airway Assessment Mouth opens: >3 cm Mallampati Score: II Focused Labs Anesthesia Preop lab: CBC WBC 7.9 K/mm3 (4.4-11.0) 01/04/24 08:40 RBC 4.33 M/mm3 (4.6-6.2) L 01/04/24 08:40 Hgb 12.2 g/dL (13.0-16.5) L 01/04/24 08:40 Hct 37.7 % (40-54) L 01/04/24 08:40 Plt Count 236 K/mm3 (150-450) 01/04/24 08:40 CHEMISTRY Potassium 4.3 mmol/L (3.5-5.1) 04/02/24 09:02 Sodium 141 mmol/L (136-145) 04/02/24 09:02 BUN 31 mg/dL (7-18) H 04/02/24 09:02 Creatinine 1.50 mg/dL (0.70-1.30) H 04/02/24 09:02 Glucose 104 mg/dL (74-106) 04/02/24 09:02 TSH 0.93 uIU/mL (0.358-3.74) 11/08/21 10:04 COAG Pre-Assessment Diagnosis/Proposed Procedure Planned Operative Procedure(s): CSCOPE Anesthesia History Anesthesia History - injection operator: Anesthesia History - injection operator Hx Hospitalization No 05/19/24 13:42 Any Problems With Anesthesia No 05/19/24 13:42 Cholinesterase deficiency No 05/19/24 13:42 You/Your Family Experience No 05/19/24 13:42 fever (hyperthermia) with Relationship Recent Exposure to Contagious No 05/21/24 06:31 Disease Does patient have nerve No 05/19/24 13:42 stimulator Patient instructed to have device shut off --Does patient have Pacemaker No 05/21/24 06:31 or ICD? When Was Last Pacemaker Check QUESTION #4 FULL TEXT: You/Your Family Experience fever (hyperthermia) with Anesthesia Last Oral Intake Last Oral intake: Last Oral Intake NPO since 03:00 05/21/24 06:31 Meds taken in AM with sips of No 05/21/24 06:31 water? Meds patient instructed to take am of surgery PONV PONV - injection operator: PONV - injection operator Female No 05/19/24 13:42 HX of Motion Sickness No 05/19/24 13:42 HX of N/V After Surgery No 05/19/24 13:42 Non-Smoker Yes 05/19/24 13:42 Duration of Surgery greater No 05/19/24 13:42 than 60 minutes Number of Risk Factors 1 05/19/24 13:42 PONV Score Low Risk 05/19/24 13:42 Height & Weight Height & Weight: Anesthesia: Height & Weight Height 5 ft 9 in 05/21/24 06:31 Weight: 97 kg 05/21/24 06:31 Body Mass Index (BMI) 31.6 05/21/24 06:31 Respiratory Assessment Respiratory Assessment - injection operator: Respiratory Tract Infection Hx - injection operator Hx Respiratory Tract Infection No 05/19/24 13:42 STOP Sleep Apnea STOP Sleep Apnea - injection operator: STOP Sleep Apnea - injection operator Hx Hypertension Yes: CONTROLLED WITH MED 05/19/24 13:42 Hx Sleep Apnea No 05/19/24 13:42 CPAP BIPAP Do you snore loudly (louder No 05/19/24 13:42 than talking or can be heard Do you often feel tired/ No 05/19/24 13:42 fatigued/ sleepy during daytime? Has anyone observed you stop No 05/19/24 13:42 breathing during sleep? STOP Results Negative 05/19/24 13:42 QUESTION #5 FULL TEXT : Do you snore loudly (louder than talking or can be heard through closed doors)? Tobacco Use History Tobacco Use History - injection operator: Tobacco Use History - injection operator Tobacco Use Smoking Status Former smoker 05/19/24 13:42 Hx Tobacco Use No 05/19/24 13:42 Years Smoking Packs Smoked per Day Smoking Cessation Date was Yes - quit smoking within 15 05/19/24 13:42 within the last 15 years years Hx Smoking Cessation Date 05/07/17 05/19/24 13:42 Hx Smoking Cessation Counseling Hematologic Medial History Hematologic Hx - injection operator: Hematologic Medical Hx - behavioral geneticist Hx of Blood Transfusion No 05/19/24 13:42 Hx of Transfusion in last 3 No 05/19/24 13:42 Months Date of Last Transfusion (if within last 3 months) Ever experience any problems No 05/19/24 13:42 with transfusion(s)? Specify any problems Hx of Preganancy in last 3 N/A 05/19/24 13:42 Months Nurse Filling Out Transfusion NBUCHER 05/19/24 13:42 & Questions: Date: 05/19/24 05/19/24 13:42 Time: 13:43 05/19/24 13:42 Patient unable to answer at this time (ie. confused, unrespo /Reproduction History /Reproductive History - injection operator: /Reproductive Hx- injection operator Hx Now No 05/19/24 13:42 Gestational Age (in weeks): EDC: Hx Hx Para Hx Section SAB No 05/19/24 13:42 PFSH Medical History Wears hearing aid Loss of hearing Wears glasses Wears dentures Wears partial dentures High cholesterol Former smoker History of echocardiogram History of stress test Cardiology follow-up encounter Hypertension History of trigger finger CKD (chronic kidney disease), stage III Health care maintenance Colon cancer screening Bilateral shoulder pain CSF leak Vitamin D deficiency Drainage from left ear Insulin dependent diabetes mellitus Hyperlipidemia RBBB Type 2 diabetes mellitus Essential hypertension History of fracture of ankle Heart murmur History of kidney stones Hyperlipemia Hearing problem Glaucoma Carpal tunnel syndrome Cataracts, bilateral Bone fracture Back problem Home Medications ?Medication ?Instructions ?Recorded ?Last Taken ?Type latanoprost 0.005 % eye drops 1 drp ophthalmic (eye) QPM 10/28/20 05/19/24 History aspirin 81 mg tablet,delayed 81 mg PO DAILY 12/06/20 05/19/24 History release (Adult Low Dose Aspirin) blood sugar diagnostic #100 ea 02/28/22 Unknown Rx blood sugar diagnostic (OneTouch #200 ea 10/05/22 Unknown Rx Ultra Test strips) blood-glucose meter (OneTouch #1 ea 10/05/22 Unknown Rx Ultra2 Meter) lancets 33 gauge #200 ea 10/05/22 Unknown Rx flash glucose scanning reader #1 ea 01/01/23 Unknown Rx (FreeStyle Marielle 2 [place]) pen needle, diabetic 29 gauge x #200 ea 02/15/23 Unknown Rx 1/2 (BD Ultra-Fine Original Pen Needle) pen needle, diabetic 33 gauge x #100 ea 02/15/23 Unknown Rx 1/4 (Comfort Touch Pen Needle) insulin lispro 100 unit/mL 7 unit (0.07 mL) subcut TID 3 10/03/23 Unknown Rx subcutaneous pen (Humalog KwikPen months #18.9 mL (U-100) Insulin) hydrochlorothiazide 25 mg tablet 25 mg PO DAILY #90 tabs 10/15/23 05/19/24 Rx pen needle, diabetic 31 gauge x #200 ea 11/28/23 Unknown Rx 1/4 (Comfort EZ Pen [place]) semaglutide 2 mg/dose (8 mg/3 mL) 2 mg (0.75 mL) subcut QWEEK 3 12/10/23 05/11/24 Rx subcutaneous pen injector (Ozempic) months #9.75 mL atorvastatin 40 mg tablet 40 mg PO QHS #90 tabs 12/22/23 05/19/24 Rx flash glucose sensor (FreeStyle #1 ea 01/22/24 Unknown Rx Marielle 2 Sensor kit) metformin 1,000 mg tablet 1,000 mg PO BID #180 tabs 02/20/24 05/19/24 Rx cholecalciferol (vitamin D3) 25 75 mcg PO QDAY 04/08/24 05/19/24 History mcg (1,000 unit) capsule insulin degludec 200 unit/mL (3 56 unit (0.28 mL) subcut BID 3 05/08/24 Unknown Rx mL) subcutaneous pen (Tresiba months #50.4 mL FlexTouch U-200 insulin) metoprolol tartrate 25 mg tablet 25 mg PO BID #180 tabs 05/09/24 05/19/24 Rx lisinopril 20 mg tablet 20 mg PO BID #90 tabs 05/19/24 05/19/24 Rx Allergy/AdvReac Type Severity Reaction Status Date / Time No Known Allergies Allergy Verified 05/21/24 06:29 Family History Father Myocardial infarction, Onset Age: 55 CAD (coronary artery disease) Other Diabetes Hyperlipemia Hypertension Surgical History Hx of colonoscopy History of ear surgery Social History household members: spouse current occupational status: retired Smoking Status: Former smoker alcohol intake: current alcohol intake frequency: a few times a week Alcohol type: beer substance use type: does not use caffeine: Yes Type: carbonated beverages Number of servings: 3 and coffee Number of servings: 5 what type of physical activity do you participate in: none Review of Systems (Anesthesia) ROS Narrative System reviewed and no additional complaints, except as documented.
[2024-05-21 07:03] LABS: Bedside Glucose 149 mg/dL (74-106)
--- NOTE | 2024-05-21 07:17 | H&P.OPEN ---
[facility] - General General Date of Service: 05/21/24 HPI Narrative VIKKI SOUSA, is a 69 M who presents for screening colonoscopy. Patient had one > 10 years ago-- negative in [place]. Patient denies any chronic abdominal pain/nausea/vomiting/GERD. Patient has bowel movements daily denies any blood. Patient denies any family history of colon cancer. [facility]LY [facility] Medical History Wears hearing aid Loss of hearing Wears glasses Wears dentures Wears partial dentures High cholesterol Former smoker History of echocardiogram History of stress test Cardiology follow-up encounter Hypertension History of trigger finger CKD (chronic kidney disease), stage III Health care maintenance Colon cancer screening Bilateral shoulder pain CSF leak Vitamin D deficiency Drainage from left ear Insulin dependent diabetes mellitus Hyperlipidemia RBBB Type 2 diabetes mellitus Essential hypertension History of fracture of ankle Heart murmur History of kidney stones Hyperlipemia Hearing problem Glaucoma Carpal tunnel syndrome Cataracts, bilateral Bone fracture Back problem Home Medications ?Medication ?Instructions ?Recorded ?Last Taken ?Type latanoprost 0.005 % eye drops 1 drp ophthalmic (eye) QPM 10/28/20 05/19/24 History aspirin 81 mg tablet,delayed 81 mg PO DAILY 12/06/20 05/19/24 History release (Adult Low Dose Aspirin) blood sugar diagnostic #100 ea 02/28/22 Unknown Rx blood sugar diagnostic (OneTouch #200 ea 10/05/22 Unknown Rx Ultra Test strips) blood-glucose meter (OneTouch #1 ea 10/05/22 Unknown Rx Ultra2 Meter) lancets 33 gauge #200 ea 10/05/22 Unknown Rx flash glucose scanning reader #1 ea 01/01/23 Unknown Rx (FreeStyle Marielle 2 [place]) pen needle, diabetic 29 gauge x #200 ea 02/15/23 Unknown Rx 1/2 (BD Ultra-Fine Original Pen Needle) pen needle, diabetic 33 gauge x #100 ea 02/15/23 Unknown Rx 1/4 (Comfort Touch Pen Needle) insulin lispro 100 unit/mL 7 unit (0.07 mL) subcut TID 3 10/03/23 Unknown Rx subcutaneous pen (Humalog KwikPen months #18.9 mL (U-100) Insulin) hydrochlorothiazide 25 mg tablet 25 mg PO DAILY #90 tabs 10/15/23 05/19/24 Rx pen needle, diabetic 31 gauge x #200 ea 11/28/23 Unknown Rx 1/4 (Comfort EZ Pen [place]) semaglutide 2 mg/dose (8 mg/3 mL) 2 mg (0.75 mL) subcut QWEEK 3 12/10/23 05/11/24 Rx subcutaneous pen injector (Ozempic) months #9.75 mL atorvastatin 40 mg tablet 40 mg PO QHS #90 tabs 12/22/23 05/19/24 Rx flash glucose sensor (FreeStyle #1 ea 01/22/24 Unknown Rx Marielle 2 Sensor kit) metformin 1,000 mg tablet 1,000 mg PO BID #180 tabs 02/20/24 05/19/24 Rx cholecalciferol (vitamin D3) 25 75 mcg PO QDAY 04/08/24 05/19/24 History mcg (1,000 unit) capsule insulin degludec 200 unit/mL (3 56 unit (0.28 mL) subcut BID 3 05/08/24 Unknown Rx mL) subcutaneous pen (Tresiba months #50.4 mL FlexTouch U-200 insulin) metoprolol tartrate 25 mg tablet 25 mg PO BID #180 tabs 05/09/24 05/19/24 Rx lisinopril 20 mg tablet 20 mg PO BID #90 tabs 05/19/24 05/19/24 Rx Allergy/AdvReac Type Severity Reaction Status Date / Time No Known Allergies Allergy Verified 05/21/24 06:29 Family History Father Myocardial infarction, Onset Age: 55 CAD (coronary artery disease) Other Diabetes Hyperlipemia Hypertension Surgical History Hx of colonoscopy History of ear surgery Social History household members: spouse current occupational status: retired Smoking Status: Former smoker alcohol intake: current alcohol intake frequency: a few times a week Alcohol type: beer substance use type: does not use caffeine: Yes Type: carbonated beverages Number of servings: 3 and coffee Number of servings: 5 what type of physical activity do you participate in: none Past Medical/Surgical History Planned Operation Planned Operative Procedure(s): CSCOPE Previous Hospitalizations/Surgeries HX Hospitalizations: No Any Problems With Anesthesia: No You/Your Family Experience Fever (Hyperthermia) With Anes: No Cholinesterase deficiency: No Cardiovascular Hx Hypertension: Yes (CONTROLLED WITH MED) Respiratory Hx Sleep Apnea: No Hx Respiratory Tract Infection/Cold (presently): No Do You Snore Loudly (louder than talking or can be heard): No Do You Often Feel Tired/ Fatigued/ Sleepy [place]ring Daytime?: No Has Anyone Observed You Stop Breathing During Sleep?: No Result (for STOP score): Negative Smoking Status: Former smoker Neurological Does patient have nerve stimulator: No Reproduction : No Miscellaneous Recent Exposure to Contagious Disease: No Allergies No Known Allergies Allergy (Verified 05/21/24 06:29) Discharge Is Pt Admitted From a Penitentiary, or a Prison: No After D/C, Where Do you Plan to Go: Return Home Vital Signs Vital Signs Vital Signs: 05/21/24 06:31 05/21/24 06:31 05/21/24 06:54 Temperature 96.4 F L 96.4 F L Temperature Source Temporal Pulse Rate 80 80 Respiratory Rate 18 18 Respiratory Pattern Normal Blood Pressure 132/64 H 132/64 H Blood Pressure Mean 86 Blood Pressure Source Monitor Blood Pressure Position Semi-Fowlers Blood Pressure Location Right Arm Pulse Ox 97 97 Oxygen Delivery Method Room Air Weight Weight: 213 lb 13.574 oz Body Mass Index (BMI) 31.6 Physical Exam Const alert, oriented x3 and no apparent distress HEENT normocephalic and head/scalp atraumatic Resp normal respiratory effort Cardio regular rate GI soft to palpation and non-tender; Negative for non-distended Palpation: Negative for guarding Extremity no clubbing, cyanosis or edema Skin no rashes or lesions noted Neuro CN's II-XII intact bilaterally Psych mental status grossly normal Assessment & Plan Assessment/Plan (1) Colon cancer screening: Surgery Risks - Colonoscopy I discussed with the patient the risks of the procedure: Yes Risks Include but are not Limited To: Risks include but are not limited to: Bleeding, perforation requiring further surgery, inability to complete colonoscopy requiring barium enema.
--- NOTE | 2024-05-21 07:52 | OP.COLON_ITS ---
Patient Name: Kit Murray Procedure Date: 05/21/2024 6:42 AM Date of : 1955 Age: 69 Procedure: Colonoscopy Indications: Screening for colorectal malignant neoplasm Providers: Hemalatha Shen MD Referring MD: Hemalatha Shen MD Medicines: Monitored Anesthesia Care Patient Profile: This is a 69 year old male. Last Colonoscopy: 10 years ago. Complications: No immediate complications. Procedure: Pre-Anesthesia Assessment: - Prior to the procedure, a History and Physical was performed, and patient medications and allergies were reviewed. The patient's tolerance of previous anesthesia was also reviewed. The risks and benefits of the procedure and the sedation options and risks were discussed with the patient. All questions were answered, and informed consent was obtained. Prior Anticoagulants: The patient has taken no anticoagulant or antiplatelet agents except for aspirin. ASA Grade Assessment: Per anesthesia. After reviewing the risks and benefits, the patient was deemed in satisfactory condition to undergo the procedure. After I obtained informed consent, the scope was passed under direct vision. Throughout the procedure, the patient's blood pressure, pulse, and oxygen saturations were monitored continuously. The pediatric colonoscope was introduced through the anus and advanced to the cecum, identified by the appendiceal orifice, ileocecal valve and palpation. The colonoscopy was performed without difficulty. The patient tolerated the procedure well. The quality of the bowel preparation was good. Scope In: 7:35:42 AM Scope Withdrawal Time 0 hours 9 minutes 8 seconds Scope Out: 7:47:41 AM Total Procedure Duration Time 0 hours 11 minutes 59 seconds Findings: The perianal and digital rectal examinations were normal. The entire examined colon appeared normal on direct and retroflexion views. Impression: - The entire examined colon is normal on direct and retroflexion views. - No specimens collected. Recommendation: - Discharge patient to home. - Resume previous diet. - Continue present medications. - Repeat colonoscopy in 10 years depending on overall health at that time. Procedure Code(s): --- Professional --- G0121, PT, Colorectal cancer screening; colonoscopy on individual not meeting criteria for high risk Diagnosis Code(s): --- Professional --- Z12.11, Encounter for screening for malignant neoplasm of colon CPT copyright 2021 [employer]. All rights reserved. The codes documented in this report are preliminary and upon criminal analyst review may be revised to meet current compliance requirements. MD Hemalatha Antoine MD 05/21/2024 7:52:27 AM This report has been signed electronically. Number of Addenda: 0 Note Initiated On: 05/21/2024 6:42 AM
--- NOTE | 2024-05-21 07:53 | OP.CCLET_ITS ---
05/21/2024 Ada Rojas MD [address] [place] [address] [place] [address] Re : Colonoscopy procedure for Kit Murray Dear Dr. Rojas This procedure was performed on Tuesday, May 21, 2024. My impressions and recommendations are as follows: Impressions : - The entire examined colon is normal on direct and retroflexion views. - No specimens collected. Recommendations : - Discharge patient to home. - Resume previous diet. - Continue present medications. - Repeat colonoscopy in 10 years depending on overall health at that time. My findings are described in the full procedure note, which is enclosed. If I can be of further assistance, please feel free to contact me at Doctor phone number(s): , Work: . Sincerely, MD Hemalatha Antoine MD 05/21/2024 7:52:27 AM This report has been signed electronically.
--- NOTE | 2024-05-21 07:54 | PCM.POST.ANE ---
Anesthesia: Postop Eval I Current Vital Signs Temperature: 97.1 F Pulse Rate: 80 Blood Pressure: 100/65 Respiratory Rate: 14 Pulse Ox: 97 Oxygen Delivery Method: Room Air Assessment Airway patent: Yes Spontaneous unlabored respirations: Yes Mental status: Awake and Calm nausea: No Vomiting: No Anesthesia Complication: No Fluid Hydration Crystalloid volume administer (ml): 30 Total IV fluid infused: 30 Progress Note Anesthesia document: Postop Eval 1 completed: Yes
--- NOTE | 2024-05-21 08:46 | POSTOPAN2_ITS ---
Anesthesia Postop Eval I Sum Postop Eval Completion status Anesthesia document: Postop Eval 1 completed: Yes Anesthesia Postop Eval I Summary Anesthesia Postop Eval I Summary: Anesthesia Postop Eval I: Assessment Summary Airway patent Yes 05/21/24 07:55 END FINDER FORMING DEPARTMENT.TNES Spontaneous unlabored Yes 05/21/24 07:55 END FINDER FORMING DEPARTMENT.TNES respirations Mental status Awake,Calm 05/21/24 07:55 END FINDER FORMING DEPARTMENT.TNES nausea No 05/21/24 07:55 END FINDER FORMING DEPARTMENT.TNES Vomiting No 05/21/24 07:55 END FINDER FORMING DEPARTMENT.TNES Anesthesia Postop Eval I: Fluid Summary Crystalloid volume administer 30 05/21/24 07:55 END FINDER FORMING DEPARTMENT.TNES (ml) Colloids volume administered ( ml) Blood Product volume administered (ml) Total IV fluid infused 30 05/21/24 07:55 END FINDER FORMING DEPARTMENT.TNES Anesthesia Postop Eval I: Summary Notes Anesthesia Complication No 05/21/24 07:55 END FINDER FORMING DEPARTMENT.TNES Anesthesia Complication Comment: Post-operative progress note Anesthesia: Postop Eval II Evaluation Mental status: Awake Pain Level: 0 nausea: No Vomiting: No
--- NOTE | 2024-05-21 08:46 | PCM.POSTANE2 ---
Anesthesia Postop Eval I Sum Postop Eval Completion status Anesthesia document: Postop Eval 1 completed: Yes Anesthesia Postop Eval I Summary Anesthesia Postop Eval I Summary: Anesthesia Postop Eval I: Assessment Summary Airway patent Yes 05/21/24 07:55 TELEPHONE [email or web address].TNES Spontaneous unlabored Yes 05/21/24 07:55 TELEPHONE ANSWERER.TNES respirations Mental status Awake,Calm 05/21/24 07:55 TELEPHONE ANSWERER.TNES nausea No 05/21/24 07:55 TELEPHONE ANSWERER.TNES Vomiting No 05/21/24 07:55 TELEPHONE ANSWERER.TNES Anesthesia Postop Eval I: Fluid Summary Crystalloid volume administer 30 05/21/24 07:55 TELEPHONE ANSWERER.TNES (ml) Colloids volume administered ( ml) Blood Product volume administered (ml) Total IV fluid infused 30 05/21/24 07:55 TELEPHONE ANSWERER.TNES Anesthesia Postop Eval I: Summary Notes Anesthesia Complication No 05/21/24 07:55 TELEPHONE ANSWERER.TNES Anesthesia Complication Comment: Post-operative progress note Anesthesia: Postop Eval II Evaluation Mental status: Awake Pain Level: 0 nausea: No Vomiting: No
== END 2024-05-21 08:28 | disposition home or self-care (01) ==
LOC: EN 06:01 → AC 06:04
PROVIDERS: PCP Internal Medicine; Referring Provider Internal Medicine; Visit Provider Surgery
PROC: 0DJD8ZZ Inspection of Lower Intestinal Tract, Via Natural or Artificial Opening Endoscopic (ICD-10-PCS; CPT 45378; principal; 2024-05-21 07:25)
DX: Z12.11 Encounter for screening for malignant neoplasm of colon (principal); E11.22 Type 2 diabetes mellitus with diabetic chronic kidney disease; Z79.4 Long term (current) use of insulin; N18.30 Chronic kidney disease, stage 3 unspecified; Z79.84 Long term (current) use of oral hypoglycemic drugs; E78.00 Pure hypercholesterolemia, unspecified; Z87.891 Personal history of nicotine dependence; I12.9 Hypertensive chronic kidney disease with stage 1 through stage 4 chronic kidney disease, or unspecified chronic kidney disease; Z79.85 Long-term (current) use of injectable non-insulin antidiabetic drugs; K21.9 Gastro-esophageal reflux disease without esophagitis; Z98.2 Presence of cerebrospinal fluid drainage device; Z79.899 Other long term (current) drug therapy
CPT/HCPCS: G0121

== ENCOUNTER → 2024-06-25 | Outpatient (CLI) | payer MEDICARE, BC, SELFPAY ==
[2024-06-25 13:17] LABS: Anion Gap 9 (5-15); BUN 22 mg/dL (7-18); BUN/Creat Ratio 16.3 RATIO (10-20); Calcium,Total 9.3 mg/dL (8.5-10.1); Chloride 106 mmol/L (98-107); Creatinine, Serum 1.35 mg/dL (0.70-1.30); EST Glomerular Filtration Rate 56 mL/min (>60); Est Glom Filt Rate - Afr Amer 68 mL/min (>60); Glucose 68 mg/dL (74-106); Potassium 4.2 mmol/L (3.5-5.1); Sodium Level 140 mmol/L (136-145)
[2024-06-25 13:56] LABS: Hemoglobin A1c 6.4 % (3.8-5.6)
== END | disposition home or self-care (01) ==
LOC: BIMLAB 09:17
PROVIDERS: PCP Internal Medicine; Referring Provider Internal Medicine; Visit Provider Internal Medicine
DX: E11.22 Type 2 diabetes mellitus with diabetic chronic kidney disease (principal); N18.30 Chronic kidney disease, stage 3 unspecified
CPT/HCPCS: 36415; 80048; 83036

== ENCOUNTER → 2024-07-02 | Outpatient (CLI) | payer MEDICARE, BC, SELFPAY ==
[2024-07-02 12:26] LABS: Absolute Lymphocyte Count 1.62 X10^3/uL (0.83-4.51); Absolute Neutrophil Count 5.3 X10^3/uL (2.0-7.7); Basophil% 1.3 % (0-1); Eosinophil# 0.17 X10^3/uL; Eosinophils% 2.2 % (0-5); Hematocrit 40.6 % (40-54); Hemoglobin 12.7 g/dL (13.0-16.5); Lymphocyte # 1.62 X10^3/ul (0.83-4.51); Lymphocyte % 20.8 % (19-41); Mean Corp Hgb Conc 31.3 g/dL (32-36); Mean Corpuscular Hgb 27.4 pg (27.0-32.0); Mean Corpuscular Volume 87.7 fL (80-94); Mean Platelet Vol. 9.9 fl (6.2-12.0); Monocyte# 0.51 X10^3/uL; Monocyte% 6.6 % (0-10); NRBC Flagged by Analyzer 0 % (0-5); Neutrophil # 5.33 X10^3/uL (2.7-7.7); Neutrophil % 68.6 % (47-70); Platelet Count 256 K/mm3 (150-450); RBC Distribution Width CV 13.6 % (11.6-14.6); Red Blood Count 4.63 M/mm3 (4.6-6.2); White Blood Count 7.8 K/mm3 (4.4-11.0)
[2024-07-02 16:24] LABS: Bacteria 0 SEEN /hpf (None Seen); Mucous, Urine 0 SEEN /hpf (<or=2+)
[2024-07-02 16:52] LABS: Color, Urine Yellow (Yellow); Glucose, Dipstick Normal (Normal); Ketone-Dipstick Negative (Negative); Leukocyte Esterase-Dipstick Negative /ul (Negative); Nitrite-Dipstick Negative (Negative); Occult Blood-Urine Negative /ul (Negative); Protein-Dipstick 15 mg/dl (Negative); Urine Bilirubin Dipstick Negative (Negative); Urine Clarity Clear (Clear); Urine Urobilinogen Normal (Normal)
[2024-07-02 18:23] LABS: Red Blood Cells-Urine 0-5 SEEN /hpf (0-5); White Blood Cells 0-5 SEEN /hpf (0-5)
[2024-07-02 18:24] LABS: Hyaline Cast 0-5 SEEN /lpf (0-5); Squamous Epithelial Cells - UA 0-5 SEEN /hpf (0-5)
[2024-07-04 03:16] LABS: Microalbumin,Random Urine < 12.0 mg/L (NO RANGE EST.)
[2024-07-04 06:45] LABS: Microalbumin:Creatinine Ratio UNABLE TO CALCULATE mg/g CRE
== END | disposition home or self-care (01) ==
PROVIDERS: PCP Internal Medicine; Referring Provider Internal Medicine; Visit Provider Internal Medicine
DX: I10 Essential (primary) hypertension (principal); R10.9 Unspecified abdominal pain
CPT/HCPCS: 36415; 81001; 82043; 82570; 85025

== ENCOUNTER → 2025-01-09 | Outpatient (CLI) | payer MEDICARE, BC, SELFPAY ==
[2025-01-09 13:37] LABS: AST(SGOT) 25 U/L (<=37); Alanine Aminotransfer ALT/SGPT 25 U/L (<=46); Albumin, Serum 4.4 g/dL (3.4-4.8); Alkaline Phosphatase 59 U/L (40-129); Anion Gap 13 (5-15); BUN 28 mg/dL (4-19); BUN/Creat Ratio 21.2 RATIO (10-20); Calcium,Total 9.8 mg/dL (7.6-11.0); Carbon Dioxide 21.7 mmol/L (21.0-32.0); Chloride 105 mmol/L (98-108); Cholesterol 121 mg/dL (<=200); Globulin 3.1 g/dL (2.2-4.2); Glucose 120 mg/dL (70-99); Low Density Lipoprotein Calc. 56 mg/dL; PSA,Total - Annual Screen 2.69 ng/mL (0.02-4.00); Potassium 4.8 mmol/L (3.3-5.1); Triglycerides 90 mg/dL; Very Low Density Lipoprotein 18 mg/dL (5-40); cholesterol:hdl ratio screen 2.55
== END | disposition home or self-care (01) ==
LOC: BIMLAB 10:37
PROVIDERS: PCP Internal Medicine; Referring Provider Internal Medicine; Visit Provider Internal Medicine
DX: Z12.5 Encounter for screening for malignant neoplasm of prostate (principal); I10 Essential (primary) hypertension; E78.5 Hyperlipidemia, unspecified
CPT/HCPCS: 36415; 80053; 80061; 84153; G0103